=== PATIENT | male | born 1940 | race Caucasian/White ===

== ENCOUNTER 2017-10-26 10:48 | Outpatient (CLI) | payer MEDICARE ==
[2017-10-26 13:51] LABS: Hemoglobin 14.5 g/dL (14.0-18.0); Mean Corpuscular HGB CONC 32.2 g/dL (32.0-36.0); Mean Corpuscular Hemoglobin 30.3 pg (27.0-31.0); Mean Corpuscular Volume 94.2 fL (78.0-98.0); Mean Platelet Volume 6.7 fL (7.4-10.4); Platelet Count 232 thou/uL (130-400); RBC Distribution Width 13.2 % (11.5-14.5); Red Blood Cell (RBC) Count 4.76 mill/uL (4.70-6.10); White Blood Cell (WBC) Count 7.4 thou/uL (4.8-10.8)
[2017-10-26 14:14] LABS: Anion Gap 14 mmol/L (10-20); BUN (Urea Nitrogen) 25 mg/dL (8.4-25.7); Calc. Creatinine Clearance 0 mL/min (70-130); Calcium 9.4 mg/dL (7.8-10.44); Carbon Dioxide 25 mmol/L (23-31); Chloride 105 mmol/L (98-107); Estimated GFR-MDRD 55; Glucose 93 mg/dL (83-110); Potassium 4.8 mmol/L (3.5-5.1); Sodium 139 mmol/L (136-145)
--- NOTE | 2017-10-26 14:48 | RAD ---
CHEST TWO VIEWS: 10/26/17 HISTORY: Not provided. COMPARISON: None. FINDINGS: Two views chest: Right sided transvenous defibrillator with lead position over the right atrium, right ventricle. Ster notomy wires are noted. Normal cardiac silhouette. Pulmonary vessels and hilum are normal. Costophren ic angles are clear. No consolidation or mass. No pneumothorax or osseous abnormalities. IMPRESSION: No acute cardiopulmonary process. POS: [facility]
--- NOTE | 2017-10-30 17:20 | EKG ---
Test Reason : Blood Pressure : / mmHG Vent. Rate : 056 BPM Atrial Rate : 250 BPM P-R Int : 000 ms QRS Dur : 196 ms QT Int : 506 ms P-R-T Axes : 000 -76 096 degrees QTc Int : 488 ms Electronic ventricular pacemaker No previous ECGs available Confirmed by LUPE BOND (2) on 10/30/2017 5:20:12 PM Referred By: MOE Confirmed By:LUPE BOND
== END 2017-10-26 10:49 | disposition home or self-care (01) ==
LOC: LABBT 10:48
PROVIDERS: ATTEND Specialist
DX: Z01.818 Encounter for other preprocedural examination (principal); C91.90 Lymphoid leukemia, unspecified not having achieved remission
CPT/HCPCS: 71046; 80048; 85027; 93005; 93010

== ENCOUNTER 2017-11-01 11:57 | Day surgery (SDC) | payer MEDICARE ==
[2017-10-26 11:23] VITALS: BMI 34.7
[2017-11-01] MEDS ORDERED: Ketorolac Tromethamine 30 MG/ML VIAL ONE (12:45)
[2017-11-01] MEDS ORDERED: CEFAZOLIN/Water 2 GM/20 ML SYRINGE ONE (12:46)
[2017-11-01] MEDS ORDERED: Bupivacaine/Epinephrine 0.25% 30 ML VIAL ONE (14:27)
[2017-11-01] MEDS ORDERED: Lidocaine 1% (PF) 30 ML VIAL ONE (14:27)
[2017-11-01] MEDS ORDERED: Lidocaine 1% PF 5 ML VIAL ONE (15:02)
--- NOTE | 2017-11-01 16:21 | RAD ---
CHEST ONE VIEW: History: 77-year-old male post Mediport placement. FINDINGS: Right ICD. Left Mediport catheter and ejection port has been placed. The tip of which extends into th e superior vena cava. No evidence for pneumothorax. There are post underlying sternotomy. IMPRESSION: Left subclavian catheter and ejection port placed without pneumothorax, pleural effusion, or other ac mary's igloo process. Post underlying sternotomy and right ICD. POS: [facility]
--- NOTE | 2017-11-02 11:02 | OP ---
DATE OF PROCEDURE: 11/01/2017 PREOPERATIVE DIAGNOSIS: Chronic lymphocytic leukemia. POSTOPERATIVE DIAGNOSIS: Chronic lymphocytic leukemia. OPERATION PERFORMED: Placement of left subclavian standard size power compatible MediPort. SURGEON: Burak Arteaga M.D. ANESTHESIA: Total intravenous anesthesia with local using 0.25% Marcaine with epinephrine. INDICATIONS: The patient is a 77-year-old white male. MediPort placement was requested by his oncol ogist for continuing treatment of his CLL. He has a pacemaker placed already on his right chest, the refore plans to place it on his left. DESCRIPTION OF OPERATION: Informed consent was obtained. The patient was taken to the operating shahla m where total intravenous anesthesia was obtained with the patient in supine position. Left periclav icular area was prepped with ChloraPrep and draped in sterile fashion. Local anesthetic was infiltra dandre and a large gauge needle was passed under the clavicle in the subclavian vein. Guidewire was pas sed through the needle and fluoroscopically confirmed to enter the superior vena cava. Additional lo silvia anesthetic was infiltrated and transverse incision was created based on needle insertion site. A subcutaneous pocket was dissected inferiorly. Introducer dilator was passed over the guidewire unde r fluoroscopic guidance. The guidewire and dilator were removed, and the catheter was passed through the introducer. The tip of the catheter was positioned at the atriocaval junction and the catheter was trimmed to the appropriate length and secured to the locking hub of the MediPort. The port was t hen placed in the subcutaneous pocket where it was secured to the pectoral fascia with 2 interrupted sutures of 3-0 Prolene. The incision was then closed in layers with 3-0 and 4-0 Monocryl. Additiona l local anesthetic was infiltrated. The port was cannulated with a New needle and it aspirated blo od freely and was flushed with heparinized saline. Dermabond was placed externally on the skin incis ion. There were no complications. Blood loss was negligible. The patient tolerated the procedure w ell and was taken to recovery room in stable condition. FINDINGS: The port was placed uneventfully in the left subclavian vein. Standard size was utilized and this was a power compatible MediPort. His anatomy was unremarkable. There was essentially no bl ood loss, no complications.
== END 2017-11-01 16:40 | disposition home or self-care (01) ==
LOC: SDC 11:57
PROVIDERS: ATTEND Specialist
PROC: 05H633Z Insertion of Infusion Device into Left Subclavian Vein, Percutaneous Approach (ICD-10-PCS; principal; 2017-11-01)
DX: C91.10 Chronic lymphocytic leukemia of B-cell type not having achieved remission (principal); E11.39 Type 2 diabetes mellitus with other diabetic ophthalmic complication; H42 Glaucoma in diseases classified elsewhere; Z88.8 Allergy status to other drugs, medicaments and biological substances; Z79.899 Other long term (current) drug therapy
CPT/HCPCS: 36561; 71045; 82962; C1788; 36416; J0131; J1642; J1885; J2001

== ENCOUNTER 2017-12-11 23:09 | Inpatient (IN) | payer MEDICARE ==
[~2017-12-11 23:09] MED LIST: ISOVUE-370 76%-LOCM 1 ML ONE
[2017-12-11 23:52] LABS: #Eosinphils 0.2 thou/uL (0.0-0.7); #Lymphocytes 1.9 thou/uL (1.20-3.40); #Monocytes 0.8 thou/uL (0.11-0.59); #Neutrophils 7.8 thou/uL (1.40-6.50); %Basophils 0.4 % (0.0-1.0); %Eosinophils 2.1 % (0.0-10.0); %Lymphocytes 17.3 % (21.0-51.0); %Monocytes 7.2 % (0.0-10.0); %Neutrophils 73.1 % (42.0-75.0); Hemoglobin 12.4 g/dL (14.0-18.0); Mean Corpuscular HGB CONC 32.8 g/dL (32.0-36.0); Mean Corpuscular Hemoglobin 30.8 pg (27.0-31.0); Mean Platelet Volume 6.9 fL (7.4-10.4); Platelet Count 230 thou/uL (130-400); RBC Distribution Width 12.8 % (11.5-14.5); Red Blood Cell (RBC) Count 4.02 mill/uL (4.70-6.10); White Blood Cell (WBC) Count 10.7 thou/uL (4.8-10.8)
--- NOTE | 2017-12-11 23:53 | RAD ---
AP VIEW CHEST: 12/11/2017 HISTORY: Weakness. Bradycardia. Chest pain. COMPARISON: 11/01/2017 FINDINGS: AP view chest demonstrates sternotomy wires seen. A dual-lead intracardiac defibrillator is seen. C ardiomegaly is noted. Mild pulmonary vascular congestion is seen. No evidence of effusions, pneumon ia, or pneumothorax is seen. A left subclavian Mediport catheter is in pace. IMPRESSION: 1. Cardiomegaly. 2. Pulmonary vascular congestion. POS: [facility]
[2017-12-12 00:12] LABS: ALT (SGPT) 10 U/L (8-55); AST (SGOT) 16 U/L (5-34); Albumin 3.8 g/dL (3.4-4.8); Alkaline Phosphatase 58 U/L (40-150); Anion Gap 11 mmol/L (10-20); BUN (Urea Nitrogen) 32 mg/dL (8.4-25.7); Bilirubin, Total 1.6 mg/dL (0.2-1.2); CK (CPK) 186 U/L (30-200); Calc. Creatinine Clearance 0 mL/min (70-130); Calcium 8.7 mg/dL (7.8-10.44); Carbon Dioxide 26 mmol/L (23-31); Chloride 102 mmol/L (98-107); Estimated GFR-MDRD 53; Globulin 2.5 g/dL (2.4-3.5); Glucose 111 mg/dL (83-110); Potassium 4.9 mmol/L (3.5-5.1); Protein, Total 6.3 g/dL (5.8-8.1); Sodium 134 mmol/L (136-145)
[2017-12-12 00:16] LABS: CKMB 1.4 ng/mL (0-6.6)
[2017-12-12 01:15] LABS: Bilirubin Negative (Negative); Blood, Urine Negative (Negative); Clarity CLEAR (Clear); Glucose, Urine (Dipstick) Negative (Negative); Leukocyte Trace (Negative); Nitrite Negative (Negative); Protein, Urine (Dipstick) Negative (Neg-Trace); Specific Gravity, Urine 1.029 (1.002-1.036)
[2017-12-12 01:18] LABS: Bacteria/HPF None Seen HPF (None Seen); Hyaline Casts/LPF 4-6 HYALINE CAST LPF (0-3 Hyaline); Pathc Cast-AUWi Flag 1.16 (0-2.49); Squamous Epithelial 0-3 HPF (0-3); WBC/HPF 0-3 HPF (0-3)
[2017-12-12 01:35] LABS: Yeast-All Forms None Seen HPF (None Seen)
[2017-12-12] MEDS ORDERED: Bupivacaine 0.5% 10 ML VIAL ONE ×2 (01:55→01:57)
[2017-12-12] MEDS ORDERED: Ondansetron PF 4 MG/2 ML Vial IVP PRN (05:31)
[2017-12-12] MEDS ORDERED: Ondansetron ODT 4 MG TAB SL PRN (05:31)
[2017-12-12] MEDS ORDERED: Acetaminophen 325 MG TAB PO PRN (05:31)
[2017-12-12 05:48] VITALS: BMI 34.7
--- NOTE | 2017-12-12 08:08 | CT ---
PRELIMINARY REPORT/[facility]/EMERGENTY AFTER-HOURS PROCEDURE CT Chest Without Intravenous Contrast EXAM DATE/TIME: 12/12/2017 1:29 AM CLINICAL HISTORY: 77 years old, male; Injury or trauma; Fall; Initial encounter; Abrasion; Prior surgery; Patient HX: E r 7; Fall; Rib FX seen on abdomen CT; 77 yo m presents to ed with mental status changes. reports PT was placed on tylenol #3 after a mechanical fall and another unwitnessed fall yesterday. TECHNIQUE: Axial computed tomography images of the chest without intravenous contrast. Coronal and sagittal reformatted images were created and reviewed. COMPARISON: No relevant prior studies available. FINDINGS: Tubes, catheters and devices: Cardiac device present. Lungs: Lungs are clear aside from mild bibasilar scarring/subsegmental atelectasis. Pleural space: No pneumothorax or hemothorax. Heart: Normal. No cardiomegaly. No pericardial effusion. Mediastinum: Esophagus is unremarkable. Aorta: 4.5 cm fusiform aneurysmal dilatation of the ascending aorta. No rupture. No traumatic aortic injury. No mediastinal hematoma, pneumomediastinum, or hemopericardium. Lymph nodes: Unremarkable. No enlarged lymph nodes. Bones/joints: Acute displaced posterolateral right eighth rib fracture. Acute nondisplaced posterolat eral right ninth rib fracture. Soft tissues: Unremarkable. Gallbladder and bile ducts: Prior cholecystectomy. Pancreas: Equivocal mild peripancreatic inflammation raises the possibility of acute pancreatitis. Kidneys and ureters: Right renal cyst. Other findings: No pulmonary contusion. IMPRESSION: 1. Equivocal mild peripancreatic inflammation raises the possibility of acute pancreatitis. 2. Acute displaced posterolateral right eighth rib fracture. Acute nondisplaced posterolateral right ninth rib fracture. Thank you for allowing us to participate in the care of your patient. Dictated and Authenticated by: Malachi Singh MD 12/12/2017 1:46 AM Central Time ([place] & [place]) FINAL REPORT CT CHEST NONCONTRAST CT THORACIC SPINE NONCONTRAST: DATE: 12/12/2017. TIME: Performed on an emergency basis at 0130 hours. HISTORY: Chest injury. Abnormal CT abdomen. FINDINGS: Agree with the preliminary report by Dr. Singh from [facility]. Right posterolateral lower rib fractures are again demonstrated. Minimal soft tissue gas. No evidence of pneumothorax. Lack o f IV contrast limits evaluation of the soft tissues. No bulky mediastinal adenopathy or hematoma. A rterial calcification is apparent. Vertebral body height and alignment of the thoracic spine are int act with degenerative changes apparent. No thoracic spine fracture is evident. POS: [facility]
--- NOTE | 2017-12-12 08:27 | CT ---
PRELIMINARY REPORT/[facility]/EMERGENTY AFTER-HOURS PROCEDURE CT Abdomen and Pelvis With Intravenous Contrast EXAM DATE/TIME: 12/12/2017 12:26 AM CLINICAL HISTORY: 77 years old, male; Pain; Abdominal pain; Localized; Right; Prior surgery; Patient HX: Er 7; Weakness ; Abdominal pain; Abdomen tender, to the right upper quadrant, to the right lower. Surgical history o f cholecystectomy. TECHNIQUE: Axial computed tomography images of the abdomen and pelvis with intravenous contrast. Coronal and sag ittal reformatted images were created and reviewed. COMPARISON: No relevant prior studies available. FINDINGS: Lower thorax: The heart is enlarged. Trace right pleural effusion. Mild right basilar consolidation. Left lower lobe calcified granuloma. Right posterior chest wall soft tissue edema and gas. There is a high density focus adjacent to the 8th rib fracture (series 2 image 12 and series 601 image 133). ABDOMEN: Liver: Unremarkable. No mass. Gallbladder and bile ducts: There has been a cholecystectomy. Pancreas: Mild infiltrative changes surrounding the pancreas most pronounced at the level of the head and uncinate process. Spleen: Unremarkable. No splenomegaly. Adrenals: Unremarkable. No mass. Kidneys and ureters: Bilateral renal hypodensities which demonstrate density higher than that of simp le cysts. Left renal calculi. No hydronephrosis. Stomach and bowel: Moderate stool. No bowel obstruction. The duodenal C-loop appears somewhat thicken ed. Colonic diverticula without adjacent inflammatory change. Appendix: Normal appendix. No findings to suggest acute appendicitis. PELVIS: Bladder: Unremarkable as visualized. Reproductive: Unremarkable as visualized. ABDOMEN and PELVIS: Intraperitoneal space: No free air. No significant fluid collection. Bones/joints: Prior median sternotomy. Multilevel spondylosis. Displaced right posterolateral 8th, mi nimally displaced right posterolateral 9th and nondisplaced right posterolateral 10th rib fractures. 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 There has been a right total hip arthroplasty. Soft tissues: Tiny fat containing umbilical and small bilateral inguinal hernias. Vasculature: Moderate atherosclerotic disease. Fusiform infrarenal abdominal aortic aneurysm measurin g 3.7 x 3.5 cm in greatest diameter. Bilateral common iliac artery aneurysms measuring 2.6 cm on the left and 2.5 cm on the right. 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 Lymph nodes: No enlarged lymph nodes. IMPRESSION: 1. Findings suggestive of acute pancreatitis. Mild peripancreatic inflammation. No discrete drainable fluid collection or pseudocyst. 2. The duodenal C-loop appears somewhat thickened. This may be reactive and/or reflect nonspecific du odenitis potentially in the setting of underlying peptic ulcer disease. 3. Acute right 8th through 10th rib fractures. Adjacent right posterior chest wall contusion. High de nsity focus adjacent to the right 8th rib fracture which may represent a focus of active bleeding. 4. Trace right pleural effusion. Mild right basilar consolidation (atelectasis and/or infiltrate and/ or contusion). 5. Other findings as above. THIS REPORT CONTAINS FINDINGS THAT MAY BE CRITICAL TO PATIENT CARE. The findings were verbally commun icated via telephone conference with YOLANDA PURI at 1:10 AM [employer] on 12/12/2017. The findings were acknowledged and understood. Thank you for allowing us to participate in the care of your patient. Dictated and Authenticated by: Osmel Strong MD 12/12/2017 1:11 AM Central Time ([place] & [place]) FINAL REPORT CT ABDOMEN AND PELVIS WITH IV CONTRAST: DATE: 12/12/2017. TIME: Performed on an emergency basis at 0027 hours. HISTORY: Abdominal pain. FINDINGS: No comparison. Agree with the preliminary report by Dr. Strong from [facility]. Inflammation in the right upper quadrant surrounds the pancreatic head and duodenum. Clinical correlation regardi ng other signs and symptoms of acute noncomplicated pancreatitis is required. Nonobstructing left re nal calculus. Right posterior lower rib fractures are favored to be acute. POS: [facility]
--- NOTE | 2017-12-12 08:28 | CT ---
PRELIMINARY REPORT/[facility]/EMERGENTY AFTER-HOURS PROCEDURE CT Head Without Intravenous Contrast EXAM DATE/TIME: 12/12/2017 12:21 AM CLINICAL HISTORY: 77 years old, male; Signs and symptoms; Altered mental status/memory loss; Confusion or disorientatio n; Patient HX: Ams/confusion; Weakness TECHNIQUE: Axial computed tomography images of the head/brain without intravenous contrast. COMPARISON: No relevant prior studies available. FINDINGS: Brain: There is diffuse cerebral atrophy present. There is bilateral periventricular and subcortical white matter hypodensity most likely related to chronic microvascular angiopathy. Mendoza-white matter d ifferentiation is within normal limits. No hemorrhage. Ventricles: No ventriculomegaly. Bones/joints: No acute fracture. Sinuses: Mild right maxillary and left frontal sinus mucosal thickening. Mastoid air cells: Well aerated. Soft tissues: Unremarkable. Vasculature: There is atherosclerotic disease of the internal carotid and vertebral arteries bilatera llkedar. IMPRESSION: 1. No acute hemorrhage, focal mass or large territory infarction. 2. Other findings as above. Thank you for allowing us to participate in the care of your patient. Dictated and Authenticated by: Osmel Strong MD 12/12/2017 12:34 AM Central Time ([place] & [place]) FINAL REPORT CT HEAD NONCONTRAST: DATE: 12/12/2017. TIME: Performed on an emergency basis at 0022 hours. HISTORY: Altered mental status. Weakness. FINDINGS: Agree with the preliminary report by Dr. Strong from [facility]. Chronic-type findings are not ed, including atherosclerosis. No acute intracranial abnormalities are demonstrated. POS: [facility]
--- NOTE | 2017-12-12 11:08 | HP ---
HISTORY OF PRESENT ILLNESS: The patient is a 77-year-old man who was brought to the emergency depart ment following an apparent near syncopal episode resulting in a fall 2 days previously. According to the patient's , the patient has been complaining of worsening chest wall pain since. He denies any dyspnea. The patient and his both denied any apparent head trauma resulting from this fall. The patient had been placed on Tylenol #3 following the fall and had an untoward reaction from that m arked by a significant mental status change. The patient did have visual hallucinations as a result of the new medication. The patient was apparently diaphoretic a few hours prior to presentation to the emergency department. PAST MEDICAL HISTORY: Pertinent for chronic lymphocytic leukemia, chronic atrial fibrillation. PAST SURGICAL HISTORY: Pertinent for right hip arthroplasty, bilateral knee arthroplasties, pacemake r implantation, right rotator cuff repair, cholecystectomy, thyroidectomy and 4-vessel coronary arter ial bypass graft. SOCIAL HISTORY: He is , lives at home with his . He denies any cigarette smoking, ethano l or illicit drug abuse. FAMILY HISTORY: Noncontributory for this patient's age. REVIEW OF SYSTEMS: A 10-point review of systems essentially unremarkable except for as stated in pas t medical history and chief complaint. PHYSICAL EXAMINATION: GENERAL: This reveals a 77-year-old normally developed man who is otherwise coherent and interactive and appears stated age. The patient is alert and oriented x3, appears to be in no acute distress at the time of my evaluation, although he reports profound weakness. VITAL SIGNS: Currently includes blood pressure 131/72, pulse is 75, respiratory rate is 18, temperat ure is 97.4 degrees Fahrenheit, oxygen saturation is 95% on room air. HEENT: Reveals normocephalic and atraumatic. Pupils are equal, round, reactive to light and accommo dation. Extraocular muscles are intact bilaterally. No sclerae icterus present. Oral mucosa is pin k and moist. No lesions are noted. NECK: Supple. No palpable lymphadenopathy or thyromegaly present. CARDIOVASCULAR: Reveals irregular rate and irregular rhythm. CHEST: Lungs are clear to auscultation bilaterally. Breathing is regular and unlabored. ABDOMEN: Soft, nontender, nondistended. Bowel sounds in all 4 quadrants, appear normoactive. Liver and spleen are nonpalpable below costal margins. NEUROLOGIC: Reveals no focal deficits present. EXTREMITIES: Reveals 2+ radial and pedal pulses bilaterally. No ankle edema is present. PERTINENT LABORATORY DATA: Today includes a CBC with 10,700 white blood cells, hemoglobin and hemato crit 12.4 and 37.7 respectively. Platelet count 230,000. Metabolic profile: Sodium 134, potassium 4.9, chloride is 102, bicarbonate 26, BUN 32, creatinine is 1.32, glucose is 111, AST and ALT normal at 16 and 10 respectively. Serum lipase is normal at 25. I have personally reviewed the radiographic studies including a chest x-ray with cardiomegaly and pul monary congestion. CT scan of the brain is unremarkable for any acute intracranial pathology. CT scan of the chest is u nremarkable for any acute intrathoracic pathology. CT scan of the abdomen and pelvis is remarkable f or multiple rib fractures involving right ribs 8 through 10. IMPRESSION: 1. Status post ground level fall second toe secondary to a near syncopal episode. 2. Multiple rib fractures involving ribs, right 8 through 10. 3. History of chronic cardiomyopathy. 4. Chronic atrial fibrillation, rate controlled. 5. Acute kidney injury. PLAN: 1. We will complete a syncopal workup. We will obtain a transthoracic echocardiography to define th e patient's cardiac function, establish chamber size and rule out any wall motion abnormalities. 2. Initiate physical and occupational therapy once adequate pain control has been achieved. 3. We will continue to monitor the patient's urinary output and creatinine clearance to determine th e stability of the acute kidney injury as the patient was exposed to IV contrast yesterday. The above findings and plan has been discussed with the patient and his at bedside. He may requ ashley inpatient rehabilitation post-discharge.
[2017-12-12] MEDS ORDERED: HumaLOG 300 UNITS/3 ML VIAL SC PRN (16:41)
[2017-12-12] MEDS ORDERED: Ondansetron ODT 4 MG TAB PO PRN (16:41)
[2017-12-12] MEDS ORDERED: Dextrose 5% in Water 1,000 ML IV PRN (16:41)
[2017-12-12] MEDS ORDERED: Dextrose 50% Abboject 50 ML SYRINGE SLOW IVP PRN (16:41)
[2017-12-12] MEDS ORDERED: traMADol HCl 50 MG TAB PO PRN ×2 (16:43)
[2017-12-12] MEDS ORDERED: Nitroglycerin 0.4 MG TAB (25 Tab Bottle) SL PRN (16:45)
[2017-12-12] MEDS: Acetaminophen 500 MG TAB PO SCH ×2 (17:28→23:02)
[2017-12-12] MEDS: Simvastatin 40 MG TAB PO SCH (20:08)
[2017-12-12] MEDS: Meloxicam 15 MG TAB PO SCH (20:08)
[2017-12-12] MEDS: Dabigatran 150 mg Capsule PO SCH (20:08)
[2017-12-12] MEDS: Amitriptyline HCl 25 MG TAB PO SCH (20:08)
[2017-12-12] MEDS: Lorazepam 1 MG TAB PO SCH (20:08)
[2017-12-12] MEDS: Carvedilol 25 MG TAB PO SCH (20:09)
[2017-12-12] MEDS: Sacubitril 24.5 MG/Valsartan 25.5 MG TABLET PO SCH (20:09)
[2017-12-13] MEDS ORDERED: Melatonin 3 MG TAB PO PRN (00:50)
[2017-12-13] MEDS: Acetaminophen 500 MG TAB PO SCH ×4 (05:03→22:16)
[2017-12-13] MEDS: Levothyroxine Sodium 25 MCG TAB PO SCH (05:03)
[2017-12-13] MEDS: Levothyroxine Sodium 112 MCG TAB PO SCH (05:03)
[2017-12-13 06:11] LABS: #Eosinphils 0.2 thou/uL (0.0-0.7); #Lymphocytes 1.9 thou/uL (1.20-3.40); #Monocytes 0.6 thou/uL (0.11-0.59); #Neutrophils 6.9 thou/uL (1.40-6.50); %Basophils 0.3 % (0.0-1.0); %Eosinophils 1.7 % (0.0-10.0); %Lymphocytes 20.1 % (21.0-51.0); %Monocytes 6.3 % (0.0-10.0); %Neutrophils 71.6 % (42.0-75.0); Hemoglobin 11.7 g/dL (14.0-18.0); Mean Corpuscular HGB CONC 32.9 g/dL (32.0-36.0); Mean Corpuscular Hemoglobin 30.8 pg (27.0-31.0); Mean Corpuscular Volume 93.8 fL (78.0-98.0); Mean Platelet Volume 6.9 fL (7.4-10.4); Platelet Count 220 thou/uL (130-400); RBC Distribution Width 12.8 % (11.5-14.5); White Blood Cell (WBC) Count 9.6 thou/uL (4.8-10.8)
[2017-12-13 06:15] LABS: Anion Gap 13 mmol/L (10-20); BUN (Urea Nitrogen) 36 mg/dL (8.4-25.7); Calc. Creatinine Clearance 85 mL/min (70-130); Calcium 8.7 mg/dL (7.8-10.44); Carbon Dioxide 25 mmol/L (23-31); Chloride 103 mmol/L (98-107); Estimated GFR-MDRD 55; Glucose 118 mg/dL (83-110); Magnesium 2.2 mg/dL (1.6-2.6); Phosphorus 3.3 mg/dL (2.3-4.7); Potassium 4.7 mmol/L (3.5-5.1); Sodium 136 mmol/L (136-145)
--- NOTE | 2017-12-13 07:38 | CT ---
CT OF THE BRAIN WITHOUT CONTRAST: Date: 12/13/17 INDICATION: History of fall. COMPARISON: Prior CT of the brain dated 12/12/17. FINDINGS: No acute infarct, hemorrhage, or hydrocephalus is present. There is generalized cerebral and cerebell ar atrophy. There is mild chronic small vessel white matter ischemic change. The skull and extracrani al soft tissues appear within normal limits. IMPRESSION: No acute intracranial abnormality. POS: [facility]
[2017-12-13] MEDS ORDERED: DONEPEZIL HCL PO SCH (09:00)
[2017-12-13] MEDS ORDERED: MEMANTINE HCL PO SCH (09:00)
[2017-12-13] MEDS ORDERED: FLAXSEED OIL PO SCH (09:00)
[2017-12-13] MEDS ORDERED: Vit B12/Folic Acid/B6/Aa No.15 [Glycotrol Capsule] PO SCH (09:00)
[2017-12-13] MEDS: Carvedilol 25 MG TAB PO SCH ×2 (10:17→20:02)
[2017-12-13] MEDS: Dabigatran 150 mg Capsule PO SCH ×2 (10:18→20:02)
[2017-12-13] MEDS: Fish Oil 1,000 MG CAP PO SCH (10:18)
[2017-12-13] MEDS: Lorazepam 1 MG TAB PO SCH ×2 (10:18→20:02)
[2017-12-13] MEDS: Multivitamin W/ Minerals 1 TAB PO SCH (10:18)
[2017-12-13] MEDS: Aspirin 81 mg Enteric Coated Tablet PO SCH (10:18)
[2017-12-13] MEDS: Sacubitril 24.5 MG/Valsartan 25.5 MG TABLET PO SCH ×2 (10:25→20:02)
--- NOTE | 2017-12-13 11:43 | PRG-2 ---
DATE OF SERVICE: 12/13/2017 RESIDENT: Dr. Kerry Anand ATTENDING: Dr. William Shah HISTORY OF PRESENT ILLNESS: This is a 77-year-old male status post fall with multiple right rib fractures 8 through 10. SUBJECTIVE: The patient reports doing well this morning. Overnight, there was a [place] all because the patient pulled out his IV and had wandered into the hallway. Vital signs remained stable during this time. The patient was found sitting on the ground. CT brain after the event showed no acute intracranial process. On exam this morning, the patient reports 0/10 pain. When prompted the patient does report pain 9/10 with coughing. Patient having BMs. OBJECTIVE: VITAL SIGNS: Temperature 97.4, pulse 65, respirations 19, O2 saturation 98% room air, BP 103/65. GENERAL: The patient is alert and oriented x3, no acute distress. HEENT: Normocephalic, atraumatic. Pupils equal, round, reactive to light. Extraocular muscles intact bilaterally. No scleral icterus. Oral mucosa pink and moist. NECK: Supple. Trachea midline. CARDIOVASCULAR: Regular rate and rhythm. No murmurs, rubs or gallops. RESPIRATORY: Bilateral symmetrical chest rise, nonlabored breathing. ABDOMEN: Soft, nontender, nondistended. NEUROLOGICAL: Nonfocal exam. EXTREMITIES: Free range of motion in all extremities. No edema present. LABORATORY DATA: WBCs 9.6, hemoglobin 11.7, hematocrit 35.6, platelets 220. Chemistry: Sodium 136, potassium 4.7, chloride 103, BUN 36, creatinine 1.28. Calcium, phosphorus and magnesium within normal limits. ASSESSMENT: 1. Status post ground level fall secondary to a near syncopal episode. 2. Multiple rib fractures involving ribs 8 through 10. 3. History of chronic cardiomyopathy. 4. Chronic atrial fibrillation, rate controlled. 5. Acute kidney injury. Echocardiogram results from yesterday showed ejection fraction of 35-40%, left atrium moderately dilated, mitral regurg present, tricuspid regurg present, dyskinetic motion of the apical wall noted. PLAN: We will consult Cardiology today. The patient states that he follows up regularly with his messenger copy, Dr. Teran in [place], [place]. I appreciate Cardiology recommendations. We will continue with physical and occupational therapy and pain control. Pain control meds will be monitored closely as patient has adverse reactions to stronger pain medications. We will continue to monitor urinary output and creatinine clearance as the patient was exposed to IV contrast 2 days ago. The patient was seen and examined by Dr. Shah at the bedside this morning. The plan above was discussed with Dr. Shah who was in agreement. SHARON
[2017-12-13] MEDS: Meloxicam 15 MG TAB PO SCH (20:02)
[2017-12-13] MEDS: Simvastatin 40 MG TAB PO SCH (20:02)
[2017-12-13] MEDS: Amitriptyline HCl 25 MG TAB PO SCH (20:02)
--- NOTE | 2017-12-14 03:54 | CON ---
CARDIOLOGY CONSULT DATE OF ADMISSION: 12/12/2017 DATE OF CONSULTATION: 12/13/2017 INDICATION FOR CONSULTATION: A 77-year-old patient with a history of cardiomyopathy and atrial fibrillation, we were asked to see the patient regarding his cardiomyopathy. He has had history of some falls, but have no history of syncope. HISTORY OF PRESENT ILLNESS: This very unfortunate 77-year-old gentleman who has had a history of myocardial infarction in the past back in 2002, he underwent bypass surgery in 2003 with 4-vessel bypass, I believe in [place]. He had pacemaker insertion in 2004. He then had this upgraded to an AICD in 2011. He has had device replaced in 2017. He has had no previous shocks from the ICD. He was diagnosed also with CLL in 1994 and this has been in remission. He presented to the hospital at this time after he has had several falls, the worst one was last , when he was taking out the trash, he got lost his balance with the trash can fell over and broke some ribs after he hit something in the garage. He was brought to the emergency room and has been admitted. Since being here, he has also had another fall and became somewhat confused. He has been given pain medications and most likely was confused on the pain medications also, but his and family tell me he has been diagnosed with dementia about 2 years ago. While he was here, he had an echocardiogram performed which showed ejection fraction of 40%-45%. I suspect this is not a new finding, but we do not have those results or those records and we have requested that we received these records from his mmd unit teacher in [place] Dr. Ram and this will hopefully give some insight is whether or not this is a new finding. It is unlikely that this is new since the patient has a defibrillator. He also appears to be in chronic atrial fibrillation. The device was checked today, it was interrogated today and it shows atrial fibrillation since February of this year. The ventricular rate has been anywhere between the average ventricular rate appears to be in the 80 range except at night, he is in the 60s. I cannot determine whether or not he is pacing very much from the defibrillator, but I suspect he does have a pacing device which is RV pacing. He does have that, but I did not see that he has two leads. He does not have a biventricular device, appears to be a single chamber device. He does have about 11 years apparently left on the generator and this is a [employer] device. He denies any chest pain. His says he has had any chest pain or significant shortness of breath since he had his bypass surgery and otherwise appears to be still somewhat confused, but is stable at this time. PAST MEDICAL HISTORY: Significant for the coronary artery disease, myocardial infarction and bypass surgery. He has had a history of pacemaker placement and then upgrade to an AICD. He has a history of cardiomyopathy. He has had a right hip surgery. He has had right hip, right knee surgery. He has had rib fractures. He has had a right rotator cuff repair. He has had a cholecystectomy. He has had a thyroidectomy. SOCIAL HISTORY: He is . He smoked heavily in the past up to 4 packs a day for about 30 years. He drinks socially. He stopped drinking and smoking before his myocardial infarction, he stopped in 1994 according to the family. 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 FAMILY HISTORY: Noncontributory. REVIEW OF SYSTEMS: According to the family is unremarkable, so was noted in the history of present illness. PHYSICAL EXAMINATION: GENERAL: Reveals an elderly gentleman who appears to be somewhat confused, but overall is very pleasant and is able to answer some questions. VITAL SIGNS: Blood pressure is 103/65, heart rate is 65 at this time and is regular but he seems to be pacing, respiratory rate 20, O2 saturations 98%. He is afebrile. HEENT: Exam shows the head to be normocephalic, atraumatic. I cannot hear any bruits and no obvious JVD. CHEST: Clear to auscultation without any rales, rhonchi or wheezing. CARDIOVASCULAR: Exam reveals a regular rhythm at this time. I did not hear any significant murmurs, heaves, thrills, bruits or rubs. He does have very soft systolic murmur over the aortic area, most likely due to some aortic valve sclerosis. He has well healed surgical incision over the AICD site. ABDOMEN: Shows obesity with positive bowel sounds. EXTREMITIES: Show no clubbing, cyanosis or edema. Pedal pulses are present. NEUROLOGIC: The patient does appear to be confused, but is awake. EKG shows underlying atrial fibrillation with ventricular pacing. LABORATORY DATA: Shows a sodium of 134, potassium is 4.9, creatinine 1.32. Blood sugar was 111, creatinine 1.32, hemoglobin is 11.7 with hematocrit 35.6, WBC of 9.6. IMPRESSION: 1. Elderly gentleman with cardiomyopathy, who has undergone AICD implant. Ejection fraction does not appear to be severely compromise. At this time, we will ask for the most recent echocardiogram from his mmd unit teacher in [place]. We will make some comparison, but I suspect he has had a history of cardiomyopathy in the past. Otherwise, I cannot account for an AICD in this gentleman unless he has had some type of ventricular tachycardia, but the family was not aware of this. It will need to compare. I would need to manage his cardiomyopathy with BRENDA inhibitors and beta blockers as well as diuretics as needed. 2. History of atrial fibrillation. This appears to be chronic, uncertain as to when this was started, but appears to be chronic and recently his mmd unit teacher had placed him on digoxin and I suspect this was for better rate control. 3. History of some dementia, this will be dealt with by the primary care service. 4. History of chronic lymphocytic leukemia, which appears to be in remission at this time. 5. History of hypothyroidism. He remains on medications. 6. Occasional falls with actually he only fell once according to the family, although he has fallen a couple times, but this is an accidental fall. He is not passing out and falling. He states sometimes his legs give out and get weak and he will fall, but mainly these are either falling over some type of equipment and losing his balance, but there has been no history of syncope according to the family. He does have fractured ribs, they will simply need to heal on their own. As far as his cardiac status is concerned, we will try to obtain his most recent stress test as well as most recent echocardiogram for comparison. At this time, I would continue his medications as noted with the beta blockers and diuretics as needed and we will need to determine whether or not the patient needs to be placed on BRENDA inhibitors or ARBs. His renal function shows a creatinine of 1.32 and decreased down to 1.28 since he has been admitted to the hospital. Once we obtain the records from his primary mmd unit teacher we can make better decisions about further medical management of the patient. At this time , overall he appears to be stable. The AICD was interrogated. There have been no discharges from the device. It appears to be functioning normally. He has a single ventricular lead. He has had previous leads placed in the atrium for the pacemaker, but these have been capped off and appears that he simply has a single chamber device, the atrial lead most likely is not functional. He appears to be in the VVIR mode for now from the interrogation of the AICD. [facility]
[2017-12-14] MEDS: Acetaminophen 500 MG TAB PO SCH ×4 (05:19→23:51)
[2017-12-14] MEDS: Levothyroxine Sodium 25 MCG TAB PO SCH (05:19)
[2017-12-14] MEDS: Levothyroxine Sodium 112 MCG TAB PO SCH (05:19)
[2017-12-14 08:10] LABS: #Eosinphils 0.3 thou/uL (0.0-0.7); #Lymphocytes 2.1 thou/uL (1.20-3.40); #Monocytes 0.6 thou/uL (0.11-0.59); #Neutrophils 6.3 thou/uL (1.40-6.50); %Basophils 0.4 % (0.0-1.0); %Eosinophils 2.8 % (0.0-10.0); %Lymphocytes 22.3 % (21.0-51.0); %Monocytes 6.7 % (0.0-10.0); %Neutrophils 67.8 % (42.0-75.0); Hemoglobin 11.1 g/dL (14.0-18.0); Mean Corpuscular HGB CONC 33.2 g/dL (32.0-36.0); Mean Corpuscular Volume 93.3 fL (78.0-98.0); Mean Platelet Volume 7.4 fL (7.4-10.4); Platelet Count 274 thou/uL (130-400); RBC Distribution Width 12.7 % (11.5-14.5); Red Blood Cell (RBC) Count 3.58 mill/uL (4.70-6.10); White Blood Cell (WBC) Count 9.2 thou/uL (4.8-10.8)
[2017-12-14] MEDS ORDERED: HOPS PO SCH (09:00)
[2017-12-14] MEDS ORDERED: VIT D3 VIT K PO SCH (09:00)
[2017-12-14] MEDS ORDERED: BERBERINE PO SCH (09:00)
[2017-12-14] MEDS: Aspirin 81 mg Enteric Coated Tablet PO SCH (09:07)
[2017-12-14] MEDS: Lorazepam 1 MG TAB PO SCH ×2 (09:07→21:29)
[2017-12-14] MEDS: Fish Oil 1,000 MG CAP PO SCH (09:07)
[2017-12-14] MEDS: Carvedilol 25 MG TAB PO SCH ×2 (09:08→21:29)
[2017-12-14] MEDS: Dabigatran 150 mg Capsule PO SCH (09:08)
[2017-12-14] MEDS: Multivitamin W/ Minerals 1 TAB PO SCH (09:08)
[2017-12-14] MEDS: Sacubitril 24.5 MG/Valsartan 25.5 MG TABLET PO SCH ×2 (09:17→21:32)
[2017-12-14 13:53] LABS: #Eosinphils 0.2 thou/uL (0.0-0.7); #Lymphocytes 1.7 thou/uL (1.20-3.40); #Monocytes 0.6 thou/uL (0.11-0.59); #Neutrophils 4.9 thou/uL (1.40-6.50); %Basophils 0.4 % (0.0-1.0); %Eosinophils 2.7 % (0.0-10.0); %Lymphocytes 23.3 % (21.0-51.0); %Monocytes 7.6 % (0.0-10.0); Hemoglobin 10.1 g/dL (14.0-18.0); Mean Corpuscular HGB CONC 33.3 g/dL (32.0-36.0); Mean Corpuscular Hemoglobin 31.2 pg (27.0-31.0); Mean Corpuscular Volume 93.6 fL (78.0-98.0); Platelet Count 239 thou/uL (130-400); RBC Distribution Width 12.6 % (11.5-14.5); Red Blood Cell (RBC) Count 3.23 mill/uL (4.70-6.10); White Blood Cell (WBC) Count 7.4 thou/uL (4.8-10.8)
[2017-12-14 14:04] LABS: INR-International Normal Ratio 1.9; Prothrombin Time 21.8 SEC (12.0-14.7)
[2017-12-14 14:05] LABS: PTT 70.4 SEC (22.9-36.1)
[2017-12-14] MEDS ORDERED: diphenhydrAMINE 50 MG CAP PO SCH (21:00)
[2017-12-14] MEDS: Amitriptyline HCl 25 MG TAB PO SCH (21:29)
[2017-12-14] MEDS: Meloxicam 15 MG TAB PO SCH (21:29)
[2017-12-14] MEDS: Simvastatin 40 MG TAB PO SCH (21:30)
--- NOTE | 2017-12-14 22:18 | CON ---
DATE OF CONSULTATION: 12/14/2017 REASON FOR CONSULTATION: Hematochezia. HISTORY: Mr. Rojo is a 77-year-old male who was admitted to the hospital 2 days ago after sustaining a fall at home, 5 days ago. Patient sustaining a displaced eighth rib fracture on the right as a result and a nondisplaced ninth rib fracture. Patient also has history of dementia over the last 2 years in addition to CLL that has been in remission. He also has coronary artery disease and defibrillator placement. Reportedly, patient had 2 episodes of bloody stool this morning. When he had 2 episodes of bloody stool this morning. There is no indication of any abdominal pain. There is no nausea or vomiting. Further history is obtained from his . Patient has had routine colonoscopy by forensic dna analyst in [facility]. The last one was 4 years ago and was reportedly normal and he is due to have surveillance colonoscopy next year. There is no history of colon polyps. Up until this admission, he had been eating well without any nausea, vomiting, or any indication of abdominal pain. His bowel function had been fairly regular. He has not had any previous GI bleeding episode. Currently, he is comfortable without any GI complaint. PAST MEDICAL HISTORY: 1. Coronary artery disease, status post bypass surgery. 2. AICD placement. 3. Cardiomyopathy. 4. Right hip surgery. 5. Dementia. 6. Status post cholecystectomy. 7. Thyroidectomy. SOCIAL HISTORY: Patient is , lives with his , former smoker, infrequent alcohol consumption. FAMILY HISTORY: Negative for any known GI problem, liver disease, or GI malignancy. HOME MEDICATIONS: Include digoxin, aspirin, amitriptyline, Pradaxa, meloxicam, Synthroid, memantine/donepezil, simvastatin, vitamin supplement, and Nitrostat p.r.n. REVIEW OF SYSTEMS: Not reliably obtained from patient because of his mental status. A 10-point review of systems was otherwise unremarkable from his . PHYSICAL EXAMINATION: VITAL SIGNS: Temperature is 97.3, blood pressure 93/58, pulse of 82. GENERAL: He is alert, comfortable in no distress. HEENT: Shows anicteric sclerae. Oropharynx clear. NECK: Supple. CARDIOVASCULAR: Shows normal S1, S2. Regular rate and rhythm. CHEST: Shows breath sounds. ABDOMEN: Mildly protuberant, but soft. There is no tenderness. There is no distention. He has active bowel sounds. No bruit. EXTREMITIES: Shows no edema. RECTAL: Shows liquid-dark maroonish bloody stool. There is no palpable mass. There is no visible external hemorrhoids. LABORATORY DATA: WBC 7.4, hemoglobin 10.1 (12.4 on admission), platelet count of 230. INR of 1.9, PTT of 70.4. Electrolytes within normal range. Bilirubin is 1.6, AST 16, ALT of 10, alkaline phosphatase 58, lipase of 25. Abdominal chest CT showed displaced eighth rib fracture and nondisplaced ninth rib fracture on the right. Abdominal CT showed peripancreatic inflammatory changes without any abnormal fluid collection with evidence of duodenitis. ASSESSMENT: 1. Hematochezia/lower gastrointestinal bleed, painless. Clinical presentation and type of stool output is suggestive of diverticular bleed especially without any associated abdominal pain. Less likely is ischemic colitis. Patient has had routine surveillance colonoscopy which makes an aggressive or malignant process unlikely. A brisk upper gastrointestinal bleeding also appears to be unlikely at the present time. 2. Status post recent fall with right rib fractures. 3. Dementia. 4. Cardiomyopathy with coronary artery disease. 5. History of chronic lymphocytic leukemia in remission. 6. Finding of peripancreatic inflammatory changes that is relatively mild on CT. However, his lipase is normal in his exam, is benign and with absence of abdominal pain makes pancreatitis very unlikely. 7. Elevation of PT and PTT. Underlying coagulopathy disorder is unknown. RECOMMENDATIONS: 1. Continue observation at this point, no need for endoscopic intervention unless patient has evidence of ongoing bleeding. 2. Agree with Dr. Shah's order for FFP. 3. We will hold off on further Lovenox and Pradaxa at this point, can continue with aspirin 81 mg daily. 4. We will follow closely. [facility]
--- NOTE | 2017-12-14 22:26 | PRG ---
DATE OF SERVICE: 12/14/2017 RESIDENT: Kerry Anand M.D. ATTENDING: Dr. Shah. SUBJECTIVE: This is a 77-year-old male, status post fall with multiple right rib fractures, 8 through 10. Overnight, nurse reported bowel movement that was bloody. Patient asymptomatic with no abdominal pain at the time. She notes, the patient continues to be disoriented throughout the night and requires a sitter. On exam this morning, the patient reports 0/10 pain. OBJECTIVE: VITAL SIGNS: Temperature 97.6, pulse 82, respirations 18, O2 saturation 95% on room air. GENERAL: The patient is alert and oriented x3, in no acute distress, sitting in the chair at the bedside. HEENT: Normocephalic, atraumatic. Pupils are equal, round, and reactive to light. Extraocular muscles intact bilaterally. No scleral icterus. NECK: Supple. Trachea midline. CARDIOVASCULAR: Regular rate and rhythm. No murmurs, rubs or gallops. RESPIRATORY: Bilateral symmetrical chest rise, nonlabored breathing. ABDOMEN: Soft, nontender, nondistended. Normoactive bowel sounds. NEUROLOGICAL: Nonfocal exam. EXTREMITIES: Free range of motion in all extremities. No edema present bilaterally. LABORATORY DATA: WBC 7.4, hemoglobin 10.1, hematocrit 30.3, platelets 239. PT 21.8, INR 1.9, aPTT 70.4. ASSESSMENT: 1. Status post ground level fall secondary to a near syncopal episode. 2. Multiple rib fractures involving ribs 8 through 10. 3. History of chronic cardiomyopathy. 4. Hematochezia 5. Chronic atrial fibrillation, rate controlled. 6. Acute kidney injury, resolving. PLAN: Cardiology consulted yesterday and requesting most recent echocardiogram and stress records from rubber turner in [place], [place]. At that point, we will be able to compare. BRENDA inhibitors, beta blockers and diuretics may be needed to be added depending on the comparison. I appreciate Cardiology recommendations and they will continue to follow. Due to patient's disorientation and agitation overnight, we will try Seroquel and follow up with the patient's symptoms. We will continue to monitor vital signs and urinary output and creatinine clearance. Bloody stool was noted in the toilet today upon exam. Gastroenterology consulted and state hematochezia likely due to diverticular bleed. GI will continue to follow and we appreciate their recommendations. Patient will be given FFP and blood products if necessary. We will continue to monitor hemoglobin. The patient was seen and examined by Dr. Shah at the bedside this morning during rounds. The plan was discussed with the patient and Dr. Shah who is in agreement. Case management continues to work on placement for the patient who will hopefully be going to [facility] in [place], [place]. SHARON
[2017-12-15 02:57] LABS: INR-International Normal Ratio 1.5; PTT 58.1 SEC (22.9-36.1); Prothrombin Time 18.1 SEC (12.0-14.7)
[2017-12-15] MEDS: Levothyroxine Sodium 112 MCG TAB PO SCH (05:42)
[2017-12-15] MEDS: Acetaminophen 500 MG TAB PO SCH ×3 (05:42→15:50)
[2017-12-15] MEDS: Levothyroxine Sodium 25 MCG TAB PO SCH (05:42)
[2017-12-15 05:56] LABS: #Eosinphils 0.3 thou/uL (0.0-0.7); #Lymphocytes 1.6 thou/uL (1.20-3.40); #Monocytes 0.5 thou/uL (0.11-0.59); #Neutrophils 3.1 thou/uL (1.40-6.50); %Basophils 0.9 % (0.0-1.0); %Eosinophils 5.1 % (0.0-10.0); %Lymphocytes 29.2 % (21.0-51.0); %Monocytes 8.2 % (0.0-10.0); %Neutrophils 56.5 % (42.0-75.0); Mean Corpuscular HGB CONC 32.8 g/dL (32.0-36.0); Mean Corpuscular Hemoglobin 30.6 pg (27.0-31.0); Mean Corpuscular Volume 93.4 fL (78.0-98.0); Mean Platelet Volume 6.9 fL (7.4-10.4); Platelet Count 213 thou/uL (130-400); RBC Distribution Width 12.6 % (11.5-14.5); Red Blood Cell (RBC) Count 2.95 mill/uL (4.70-6.10); White Blood Cell (WBC) Count 5.4 thou/uL (4.8-10.8)
[2017-12-15 06:04] LABS: INR-International Normal Ratio 1.4; Prothrombin Time 17.6 SEC (12.0-14.7)
[2017-12-15 06:05] LABS: PTT 54.7 SEC (22.9-36.1)
[2017-12-15] MEDS: Lorazepam 1 MG TAB PO SCH (09:11)
[2017-12-15] MEDS: Sacubitril 24.5 MG/Valsartan 25.5 MG TABLET PO SCH (09:11)
[2017-12-15] MEDS: Carvedilol 25 MG TAB PO SCH (09:11)
[2017-12-15] MEDS: Multivitamin W/ Minerals 1 TAB PO SCH (09:11)
[2017-12-15] MEDS: Fish Oil 1,000 MG CAP PO SCH (09:11)
[2017-12-15] MEDS ORDERED: OCTAGAM 10% 20 GM, OCTAGAM 10% 10 GM in Premix Bag 1 BAG IVPB SCH (09:30)
[2017-12-15] MEDS ORDERED: diphenhydrAMINE 25 MG CAP PO PRN (09:32)
[2017-12-15] MEDS ORDERED: OCTAGAM IVPB SCH (09:45)
--- NOTE | 2017-12-15 12:45 | CON ---
DATE OF CONSULTATION: 12/15/2017 REASON FOR CONSULTATION: CLL. 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 The patient has had worsening chest pain since the fall. Patient was brought in by his and marbin taylor had started Tylenol #3 after the fall and had significant mental status change and delirium. Th e patient states his pain is still present but has slightly improved since admission to the hospital. The patient had a CT of the chest that showed an acute displaced posterolateral right 8th rib fract ure and acute nondisplaced posterolateral right 9th rib fracture. Also during admission, the patient was noted to have 2 bowel movements with large amount of blood and has been evaluated by Dr. Rylan cordero. It is believed the patient had a diverticular bleed; however, patient has had no more bleeding episodes since yesterday and hemoglobin is currently 9.0 that was 12.4 on admission. Patient's vital signs have been stable and there is no plan for inpatient endoscopy at this time. The patient was d ue for IVIG as an outpatient today. REVIEW OF SYSTEMS: Ten-point review of systems negative except as per HPI. PAST MEDICAL HISTORY: CLL and Afib. PAST SURGICAL HISTORY: Right hip arthroplasty, bilateral knee arthroplasties, pacemaker implantation , right rotator cuff repair, cholecystectomy, thyroidectomy, and CABG. SOCIAL HISTORY: , lives at home with his . No tobacco, alcohol, or illicit drugs. FAMILY HISTORY: Noncontributory. REVIEW OF SYSTEMS: As stated. PHYSICAL EXAMINATION: VITAL SIGNS: Temperature 97.3, pulse 60, respirations 16, satting 97% on room air, blood pressure 10 5/67. GENERAL APPEARANCE: The patient is sitting in a chair, eating, in no acute distress. HEENT: Normocephalic, atraumatic. NECK: Supple, no lymphadenopathy. CARDIOVASCULAR: Regular rate and rhythm, otherwise no murmurs, rubs, or gallops. LUNGS: Nonlabored. Clear to auscultation. ABDOMEN: Soft, nondistended, nontender. NEUROLOGIC: No focal deficits present. EXTREMITIES: No edema. LABORATORY DATA: White blood cells 5.4; hemoglobin 9.0; platelets 213; PTT 70.4, currently 54.7. IMAGING DATA: Chest x-ray dated December 11, 2017, shows cardiomegaly and vascular congestion. CT ch est dated December 12, 2017, shows an acute displaced eighth rib fracture and a nondisplaced ninth rib fracture. ASSESSMENT AND PLAN: A 77-year-old male with chronic lymphocytic leukemia and hypogammaglo bulinemia on IVIG, presenting to the hospital after a fall with 2 acute rib fractures and 2 episodes of bright red blood per rectum. The patient's rib fractures are being treated conservatively with arteaga pportive measures and the patient has had no further episodes of gastrointestinal bleeding. He has b een evaluated by Dr. Haskins and thought to have diverticular bleed and vitals and hemoglobin are stable and thus, no inpatient endoscopy is currently planned. Patient was due for IVIG as an outpatient to day and we will give this to him in the hospital prior to discharge. The patient is planned to go to a care home at this time and upon discharge, can follow up with Dr. Duran as an outpatient for ongoing IVIG treatment. Thank you for this consult.
--- NOTE | 2017-12-15 13:59 | DIS-2 ---
DATE OF ADMISSION: 12/11/2017 DATE OF DISCHARGE: 12/15/2017 RESIDENT: Kerry Anand M.D. DISCHARGE ATTENDING: Dr. William Shah CONSULTATIONS: Case management, Cardiology, Gastroenterology, Oncology, PT/OT. PROCEDURES: None. PRIMARY DIAGNOSIS: Multiple rib fractures, right ribs 8 through 10. SECONDARY DIAGNOSES: Chronic cardiomyopathy, chronic atrial fibrillation, rate controlled, acute kidney injury, dementia, hematochezia, chronic lymphocytic leukemia. DISCHARGE MEDICATIONS: 1. Tylenol extra strength 1000 mg oral every 6 hours. 2. Melatonin 3 mg oral at bedtime as needed. 3. Simvastatin 80 mg oral at bedtime. 4. Ultram 50 mg oral every 6 hours as needed. 5. Seroquel 25mg oral twice daily 6. Aspirin 81 mg oral daily 7. Amitriptyline 1 tab oral at bedtime. 8. Vitamin B12/folic acid/B6 1 cap oral every morning. 9. Carvedilol 1 tab oral twice daily. 10. Vitamin D3-vitamin K 2000 units oral Tuesday, Tuesday, and Tuesday. 11. Maurice 26 mg oral twice daily. 12. [place] 3 fatty acid 1 cap oral every morning. 13. Flaxseed oil 1 cap oral every morning. 14. Insulin 35 units subcu every morning. 15. Levothyroxine 1 tab oral every morning. 16. Meloxicam 1 tab oral at bedtime. 17. Multivitamin, Ther and Minerals 1 tab oral every morning 18. Memantine/Donepezil 1 cap oral every morning 19. Nitrostat 1 tab oral as needed 20. Forteo 20 mcg subq daily 21. Digoxin 250 mcg oral daily DISCONTINUED MEDICATIONS: 1. Lorazepam. 2. Pradaxa. HISTORY OF PRESENT ILLNESS/HOSPITAL COURSE: This is a 77-year-old male brought to the ER following an apparent near syncopal episode resulting in a fall. The patient was placed on Tylenol #3 following the fall and had mental status changes. Per the , the patient is sensitive to medication and gets disoriented during hospital stays. The patient found to have multiple right rib fractures. Rib fracture protocol initiated. Special care taken for pain control as the patient has adverse reaction to stronger pain medications. The patient was disoriented and a Code Rosendo was called on 12/13/2017 due to the patient getting out of bed, pulling his IV, and wandering in the [place]. The patient was found sitting down in the [place]. It is not known if the patient fell , so a head CT was ordered that was negative for any intracranial process. Due to the patient's disorientation he was started on quetiapine. The patient had an echo done during this stay that had ejection fraction of 35-40%, left atrium moderately dilated, mitral and tricuspid regurg and dyskinetic motion of the apical wall. He has a history of chronic cardiomyopathy. Cardiology consulted. Dr. Solorzano is requesting records to compare current echo previous one. The patient routinely follows up with his oil mixer in [place], [place] and will have close followup. During his stay, the patient had a few episodes of bloody bowel movements that were painless. GI consulted and the patient thought to have bloody bowel movements secondary to diverticular disease. Recommended to hold Lovenox and Pradaxa and continue with aspirin. Pradaxa can be resumed in 1 week if there is no further bloody BMs. The patient given 2 units of FFP due to elevated PT and PTT. The patient has a history of CLL. Oncology consulted and the patient started on IVIG as the patient was due for this in the outpatient setting today. Physical and occupational therapy as well as pain control achieved during his stay. The patient had good urinary output. On day of discharge, the patient had 0/10 pain and was alert and oriented x3. Per patient's , he was acting much more like his normal mental status baseline. Patient will be going to a SNF in [place], [place]. On the day of discharge, the patient was seen and examined by Dr. Shah at the bedside. The plan was discussed with the patient and family who are all in agreement. DISPOSITION: Stable. DISCHARGE INSTRUCTIONS: 1. Location: [facility] in [place], [place]. 2. Diet: Consistent carbohydrate, heart healthy. 3. Activity: Ad tika with fall precautions. 4. Followup: Follow up with Dr. Shah in 2 weeks, with PCP in 2 weeks and with oil mixer and oncologist as scheduled. [facility]
[2017-12-15 15:38] VITALS: BP 122/71; TEMP 98
--- NOTE | 2017-12-15 15:58 | PRG ---
DATE OF SERVICE: 12/15/2017 SUBJECTIVE: The patient feels fine without any complaint. He is eating well. There is no nausea, v omiting or abdominal pain. More importantly, he has not had any bloody stool or rectal bleeding sinc e yesterday afternoon. PHYSICAL EXAMINATION: VITAL SIGNS: Temperature is 97.3, blood pressure 105/67, pulse of 60. GENERAL: He is alert, in no distress. HEENT: Shows anicteric sclerae. Oropharynx clear. NECK: Supple. CARDIOVASCULAR: Normal S1, S2. Regular rate and rhythm. CHEST: Shows normal breath sounds. ABDOMEN: Protuberant, but soft. No tenderness or distension. Active bowel sounds. EXTREMITIES: Shows no edema. LABORATORY DATA: WBC is 5.4, hemoglobin 9.0, hematocrit 27.5, platelet count of 213,000. INR is 1.4 , PTT is 54.7 seconds after 2 units of FFP. ASSESSMENT: 1. Painless hematochezia, likely diverticular bleed. Clinically resolved without any further bleedi ng seen in the last 20 hours. He does have a drop in his hemoglobin down now to 9 g/dL. 2. Coronary artery disease with cardiomyopathy, status post AICD placement. 3. Dementia. 4. Status post fall with rib fracture. RECOMMENDATIONS: 1. Clinically doing well from GI standpoint without further bleeding. 2. No new recommendation. The patient is stable to be transferred to SNF in [place] later today. 3. The patient can resume Pradaxa in 1 week if there is no recurrent bleeding.
== END 2017-12-15 19:05 | disposition home or self-care (01) | DRG 183 ==
LOC: ERS 23:09 → SJJU 12-12 04:05
PROVIDERS: ADMIT Surgery; ATTEND Surgery
PROC: 30233N1 Transfusion of Nonautologous Red Blood Cells into Peripheral Vein, Percutaneous Approach (ICD-10-PCS; principal; 2017-12-14)
DX: S22.41XA Multiple fractures of ribs, right side, initial encounter for closed fracture (principal); K57.91 Diverticulosis of intestine, part unspecified, without perforation or abscess with bleeding; N17.9 Acute kidney failure, unspecified; I42.9 Cardiomyopathy, unspecified; C91.11 Chronic lymphocytic leukemia of B-cell type in remission; I48.2 Chronic atrial fibrillation; Z95.0 Presence of cardiac pacemaker; Z90.49 Acquired absence of other specified parts of digestive tract; Z95.1 Presence of aortocoronary bypass graft; Z91.81 History of falling; I25.10 Atherosclerotic heart disease of native coronary artery without angina pectoris; F03.90 Unspecified dementia, unspecified severity, without behavioral disturbance, psychotic disturbance, mood disturbance, and anxiety; Z87.891 Personal history of nicotine dependence; Z79.82 Long term (current) use of aspirin; I25.2 Old myocardial infarction
CPT/HCPCS: 36415; 36416; 36430; 51701; 70450; 71045; 71250; 74177; 80048; 80053; 81003; 81015; 82553; 83690; 83735; 84100; 84484; 85025; 85610; 85730; 86850; 86900; 86901; 93005; 93306; 96360; 96361; G8978-GP-CL; G8979-GP-CJ; G8987-GO-CJ; G8988-GO-CI; J1568; J1642; J3490; P9059

== ENCOUNTER 2017-12-26 19:32 | Inpatient (IN) | payer MEDICARE ==
[2017-12-26] MEDS ORDERED: Ondansetron ODT 4 MG TAB PO PRN (20:33)
[2017-12-26] MEDS ORDERED: hydrALAZINE 20 MG/ML VIAL SLOW IVP PRN (20:33)
[2017-12-26] MEDS ORDERED: Dextrose 5% in Water 1,000 ML IV PRN (20:33)
[2017-12-26] MEDS ORDERED: Dextrose 50% Abboject 50 ML SYRINGE SLOW IVP PRN (20:33)
[2017-12-26] MEDS ORDERED: Ibuprofen 600 MG TAB PO PRN (20:36)
[2017-12-26] MEDS ORDERED: Acetaminophen 500 MG TAB PO PRN (20:36)
[2017-12-26] MEDS ORDERED: traMADol HCl 50 MG TAB PO PRN ×2 (20:36)
[2017-12-26] MEDS ORDERED: Melatonin 3 MG TAB PO PRN (20:37)
[2017-12-26] MEDS ORDERED: Nitroglycerin 0.4 MG TAB (25 Tab Bottle) SL PRN (20:37)
--- NOTE | 2017-12-26 20:44 | CT ---
CT CHEST WITHOUT CONTRAST: Technique: Multiple contiguous axial images were obtained through the chest with IV enhancement. Indications: Shortness of breath. Right lung base opacification noted on chest film. Infiltrate versu s mass versus pneumothorax. FINDINGS: Large right pleural effusion. There is associated right lung atelectasis. Left lung is clear. Mediast inum is unremarkable. IMPRESSION: Large right pleural effusion with associated right lung atelectasis. POS: H
[2017-12-26] MEDS ORDERED: Meloxicam 15 MG TAB PO SCH (21:00)
--- NOTE | 2017-12-26 21:10 | HP ---
HISTORY OF PRESENT ILLNESS: A 77-year-old male patient initially admitted by Dr. Shah on 12/12/2017 for ground level fall with multiple rib fractures 8 through 10 on the right. He has a history of ca rdiomyopathy, CLL, atrial fibrillation on Pradaxa. Patient apparently underwent a syncopal workup, e chocardiography and then transferred to rehab where his Pradaxa was restarted. The patient went home , he became short of breath, reported to the emergency room outside facility. Chest x-ray revealed c hanges suggestive of possible pneumonia. He was transferred to [facility] where Dr. Nagy evaluated him with a CAT scan of the chest revealing a right hemothorax. The patient is on oxygen a nd is felt comfortable since he is on the Pradaxa and his hemoglobin has not changed since 12/15/2017 when it was 9 and 12/14/2017, it was 10, today is 8.8. We will plan to hold his Pradaxa and plan tu be thoracostomy in the next 24-48 hours. ALLERGIES: HYDROCODONE, MORPHINE. TOBACCO: None. ALCOHOL: None. SOCIAL HISTORY: Patient is , lives with his . PAST SURGICAL HISTORY: Right hip arthroplasty, bilateral knee arthroplasties, pacemaker of right sub clavian vein, right rotator cuff, cholecystectomy, thyroidectomy, coronary artery bypass grafting aft er myocardial infarction several years ago. PAST MEDICAL HISTORY: CLL, coronary artery disease, chronic atrial fibrillation on anticoagulation w ith Pradaxa. Echocardiogram on 12/12/2017, 35%-40% ejection fraction, defibrillator present, dyskine tic motion of apical wall LV. MEDICATIONS AT HOME: Tramadol, vitamin D3, B12, Forteo 20 mcg subcu daily, Zocor 80 mg at bedtime, S eroquel 25 b.i.d., nitroglycerin p.r.n., multivitamins daily, memantine, donepezil daily, Meloxicam a t bedtime, melatonin at bedtime, levothyroxine daily, insulin 70/30 5 units subcutaneously a.m., digo elena 250 mcg a day, carvedilol b.i.d., aspirin 81 mg a day, amitriptyline at bedtime. PHYSICAL EXAMINATION: VITAL SIGNS: 120/90, respiratory rate 18. HEENT: Unremarkable. LUNGS: Diminished. CARDIAC: Regular rate and rhythm. ABDOMEN: Soft, nontender. Sternotomy scar per above cardiac history. Defibrillator of right chest. MediPort left subclavian vein IV access. ASSESSMENT AND PLAN: 1. Hemothorax right. Plan, oxygen observed. Plan tube thoracostomy in next 24-48 hours after Juany xa is discontinued. 2. Atrial fibrillation. 3. Cardiomyopathy. 4. Defibrillator. 5. Right rib fractures, chronic. 6. Dementia.
[2017-12-26] MEDS ORDERED: Ketorolac Tromethamine 30 MG/ML VIAL ONE (22:24)
[2017-12-26] MEDS: Sacubitril 24.5 MG/Valsartan 25.5 MG TABLET PO SCH (23:39)
[2017-12-26] MEDS: Carvedilol 25 MG TAB PO SCH (23:40)
[2017-12-26] MEDS: Amitriptyline HCl 25 MG TAB PO SCH (23:40)
[2017-12-26] MEDS: Famotidine 20 MG TAB PO SCH (23:40)
[2017-12-26] MEDS: Simvastatin 40 MG TAB PO SCH (23:40)
[2017-12-27 00:55] VITALS: BMI 32.6
[2017-12-27] MEDS: Levothyroxine Sodium 25 MCG TAB PO SCH (05:27)
[2017-12-27] MEDS: Levothyroxine Sodium 112 MCG TAB PO SCH (05:27)
[2017-12-27 05:33] LABS: #Lymphocytes 1.9 thou/uL (1.20-3.40); #Monocytes 1.1 thou/uL (0.11-0.59); #Neutrophils 9.3 thou/uL (1.40-6.50); %Basophils 0.3 % (0.0-1.0); %Eosinophils 0.3 % (0.0-10.0); %Lymphocytes 14.9 % (21.0-51.0); %Monocytes 9.2 % (0.0-10.0); %Neutrophils 75.4 % (42.0-75.0); Hemoglobin 8.1 g/dL (14.0-18.0); Mean Corpuscular HGB CONC 30.8 g/dL (32.0-36.0); Mean Corpuscular Hemoglobin 29.4 pg (27.0-31.0); Mean Corpuscular Volume 95.6 fL (78.0-98.0); Mean Platelet Volume 6.7 fL (7.4-10.4); Platelet Count 461 thou/uL (130-400); RBC Distribution Width 14.8 % (11.5-14.5); Red Blood Cell (RBC) Count 2.75 mill/uL (4.70-6.10); White Blood Cell (WBC) Count 12.4 thou/uL (4.8-10.8)
[2017-12-27 05:46] LABS: ALT (SGPT) 14 U/L (8-55); AST (SGOT) 16 U/L (5-34); Albumin 3.3 g/dL (3.4-4.8); Alkaline Phosphatase 64 U/L (40-150); Anion Gap 15 mmol/L (10-20); BUN (Urea Nitrogen) 35 mg/dL (8.4-25.7); Bilirubin, Total 1.3 mg/dL (0.2-1.2); Calc. Creatinine Clearance 49 mL/min (70-130); Calcium 8.7 mg/dL (7.8-10.44); Carbon Dioxide 23 mmol/L (23-31); Chloride 105 mmol/L (98-107); Estimated GFR-MDRD 30; Globulin 2.8 g/dL (2.4-3.5); Glucose 131 mg/dL (83-110); Potassium 5.1 mmol/L (3.5-5.1); Protein, Total 6.1 g/dL (5.8-8.1); Sodium 138 mmol/L (136-145)
[2017-12-27] MEDS ORDERED: Sodium Chloride 0.9% 1,000 ML IV SCH (06:30)
[2017-12-27] MEDS: Sodium Chloride 0.45% 1,000 ML IV SCH ×2 (07:40→17:57)
[2017-12-27] MEDS ORDERED: FLAXSEED OIL PO SCH (09:00)
[2017-12-27] MEDS ORDERED: Non-Formulary Item 1 EACH (Levothyroxine Sodium [Levothyroxine Sodium] 1 TAB) PO SCH (09:00)
[2017-12-27] MEDS ORDERED: Vit B12/Folic Acid/B6/Aa No.15 [Glycotrol Capsule] 1 CAP PO SCH (09:00)
[2017-12-27] MEDS: Sacubitril 24.5 MG/Valsartan 25.5 MG TABLET PO SCH ×2 (09:44→20:37)
[2017-12-27] MEDS: Fish Oil 1,000 MG CAP PO SCH (09:44)
[2017-12-27] MEDS: Famotidine 20 MG TAB PO SCH ×2 (09:44→20:36)
[2017-12-27] MEDS: Polyethylene Glycol 3350 17 GM Packet PO SCH (09:44)
[2017-12-27] MEDS: Multivitamin W/ Minerals 1 TAB PO SCH (09:44)
[2017-12-27] MEDS: Digoxin 0.25 MG TAB PO SCH (09:45)
[2017-12-27] MEDS: Carvedilol 25 MG TAB PO SCH ×2 (09:45→20:36)
[2017-12-27] MEDS ORDERED: guaiFENesin 100 MG/5 ML UDCUP PO PRN (09:46)
[2017-12-27] MEDS ORDERED: traMADol HCl 50 MG TAB PO PRN ×2 (10:47→17:14)
[2017-12-27] MEDS: Acetaminophen 500 MG TAB PO SCH ×2 (16:12→23:13)
[2017-12-27] MEDS: CEFAZOLIN 2 GM/50 ML-DEXTROSE 2 GM in Premix Bag 1 BAG IVPB SCH ×2 (16:13→23:14)
--- NOTE | 2017-12-27 16:32 | PRG ---
DATE OF SERVICE: 12/27/2017 HISTORY OF PRESENT ILLNESS: Mr. Rojo is a 77-year-old man who was previously admitted on 2017 following a ground level fall where he sustained multiple right-sided rib fractures. Patient wa s subsequently discharged and was seen in an outside hospital yesterday with chest pain and chest con gestion. Workup at that time included a chest x-ray. The patient was seen by the trauma team. He further underwent a CT scan of the chest which reveals l arge right pleural effusion likely hemothorax given the decreasing patient's hemoglobin from baseline . Currently, the patient is complaining of worsening cough, although he is unable to bring up any sputu m. He denies any fevers or chills. He denies any syncope or dyspnea. OBJECTIVE: VITAL SIGNS: Includes blood pressure 132/69, pulse is 69, respiratory rate is 16, temperature 97.8 d egrees Fahrenheit, oxygen saturation is 93% on 2 liters by nasal cannula oxygen. HEENT: Reveals normocephalic and atraumatic. Pupils equal, round, and reactive to light and accommo dation. He has no jugular venous distention noted. HEART: Reveals regular rate and rhythm, no murmurs or gallops auscultated. LUNGS: Reveals bibasilar rhonchi with diminished right basilar breath sounds. Breathing is otherwis e regular and unlabored. ABDOMEN: Soft, nontender, nondistended. Liver and spleen nonpalpable below costal margin. EXTREMITIES: Reveal 2+ radial and pedal pulses bilaterally. No ankle edema is present. NEUROLOGIC: Reveals no focal deficits present. LABORATORY DATA: Today includes a CBC with 12,400 white blood cells, hemoglobin and hematocrit 8.1 a nd 26.2 respectively. Platelet count is 461,000. Metabolic Profile: Sodium 138, potassium is 5.1, chloride is 105, bicarbonate is 23, BUN is 35, creatinine is 2.14, glucose is 131, total bilirubin is 1.3, AST and ALT normal at 16 and 14 respectively. I have personally reviewed the chest CT scan which reveals a large right pleural fluid collection lik neela hemothorax. IMPRESSION: 1. Acute delayed right hemothorax. 2. Acute blood loss anemia secondary to multiple right rib fractures. 3. History of recent fall. 4. Acute kidney injury likely secondary to acute blood loss anemia. 5. Qualitative coagulopathy. The patient is on Pradaxa. PLAN: 1. Anticoagulation will be withheld. 2. The patient will be resuscitated with 1 unit of packed red blood cells as well as intravenous flu ids. We will monitor his urinary output as endpoint of our resuscitation. 3. Chest tube will be placed tomorrow to evacuate the right hemothorax. 4. Patient will be started on empiric treatment for community-acquired pneumonia. Above findings and plan has been discussed with the patient who indicates understanding of informatio n given. I have answered his questions. The family was at bedside as well during this visit. I hav e answered all their questions.
[2017-12-27] MEDS: traMADol HCl 50 MG TAB PO SCH (17:57)
[2017-12-27] MEDS ORDERED: Sodium Chloride 0.9% 500 ML IVPB SCH (18:30)
[2017-12-27] MEDS: Simvastatin 40 MG TAB PO SCH (20:36)
[2017-12-27] MEDS: Amitriptyline HCl 25 MG TAB PO SCH (20:36)
[2017-12-27] MEDS ORDERED: CEFAZOLIN 2 GM in Sodium Chloride 0.9% 100 ML IVPB SCH (22:00)
[2017-12-28] MEDS: traMADol HCl 50 MG TAB PO SCH ×3 (03:56→17:23)
[2017-12-28] MEDS: Acetaminophen 500 MG TAB PO SCH ×5 (05:21→21:55)
[2017-12-28] MEDS: Levothyroxine Sodium 112 MCG TAB PO SCH (05:22)
[2017-12-28] MEDS: Levothyroxine Sodium 25 MCG TAB PO SCH (05:22)
[2017-12-28] MEDS: Sodium Chloride 0.45% 1,000 ML IV SCH (05:28)
[2017-12-28] MEDS ORDERED: Tamsulosin HCl 0.4 MG CAP PO SCH (07:15)
[2017-12-28 07:37] LABS: #Basophils 0.1 thou/uL (0.0-0.2); #Eosinphils 0.1 thou/uL (0.0-0.7); #Lymphocytes 1.6 thou/uL (1.20-3.40); #Monocytes 1.1 thou/uL (0.11-0.59); #Neutrophils 10.3 thou/uL (1.40-6.50); %Basophils 0.6 % (0.0-1.0); %Eosinophils 0.8 % (0.0-10.0); %Lymphocytes 12.4 % (21.0-51.0); %Monocytes 8.2 % (0.0-10.0); %Neutrophils 78.2 % (42.0-75.0); Hemoglobin 8.1 g/dL (14.0-18.0); Mean Corpuscular HGB CONC 30.6 g/dL (32.0-36.0); Mean Corpuscular Hemoglobin 30.2 pg (27.0-31.0); Mean Corpuscular Volume 98.8 fL (78.0-98.0); Mean Platelet Volume 7.1 fL (7.4-10.4); Platelet Count 411 thou/uL (130-400); RBC Distribution Width 14.9 % (11.5-14.5); Red Blood Cell (RBC) Count 2.68 mill/uL (4.70-6.10); White Blood Cell (WBC) Count 13.2 thou/uL (4.8-10.8)
[2017-12-28 07:55] LABS: Anion Gap 12 mmol/L (10-20); BUN (Urea Nitrogen) 47 mg/dL (8.4-25.7); Calc. Creatinine Clearance 41 mL/min (70-130); Calcium 8.1 mg/dL (7.8-10.44); Carbon Dioxide 22 mmol/L (23-31); Chloride 104 mmol/L (98-107); Estimated GFR-MDRD 24; Glucose 134 mg/dL (83-110); Magnesium 2.2 mg/dL (1.6-2.6); Phosphorus 4.6 mg/dL (2.3-4.7); Potassium 5.1 mmol/L (3.5-5.1); Sodium 133 mmol/L (136-145)
[2017-12-28] MEDS ORDERED: Lidocaine 1% (PF) 30 ML VIAL ONE (08:32)
[2017-12-28] MEDS ORDERED: Lidocaine 1% (PF) 30 ML VIAL SC SCH (08:45)
--- NOTE | 2017-12-28 08:52 | RAD ---
RADIOGRAPH CHEST 1 VIEW: Date: 12-28-17 Time: 8:07 a.m. HISTORY: 77-year-old male with chest pain and cough. COMPARISON: 12-26-17 at 4:40 p.m. FINDINGS: The right pleural effusion has increased in volume and now reaches the right apex. There is interval worsening of opacification of the underlying right lung, including total opacification of the right l ower lobe and right middle lobe. There is a relatively small residual region of aerated right parahil ar upper lobe. The left lung remains clear. No cardiomegaly. Sternotomy wires. Left subclavian implan table vascular access port. Right subclavian AICD. No pneumothorax. Left lateral costophrenic angle i s sharp. IMPRESSION: Significant interval increase in the volume of the right pleural effusion since two days ago. BRAYAN POS: GRERY
[2017-12-28] MEDS ORDERED: HOPS PO SCH (09:00)
[2017-12-28] MEDS ORDERED: BERBERINE PO SCH (09:00)
[2017-12-28] MEDS ORDERED: VIT D3 VIT K PO SCH (09:00)
[2017-12-28] MEDS: Digoxin 0.25 MG TAB PO SCH (09:02)
[2017-12-28] MEDS: Famotidine 20 MG TAB PO SCH ×2 (09:02→21:56)
[2017-12-28] MEDS: Carvedilol 25 MG TAB PO SCH ×2 (09:02→21:55)
[2017-12-28] MEDS: Multivitamin W/ Minerals 1 TAB PO SCH (09:02)
[2017-12-28] MEDS: Sacubitril 24.5 MG/Valsartan 25.5 MG TABLET PO SCH ×2 (09:02→21:54)
[2017-12-28] MEDS: Polyethylene Glycol 3350 17 GM Packet PO SCH (09:04)
[2017-12-28] MEDS: Fish Oil 1,000 MG CAP PO SCH (09:06)
[2017-12-28] MEDS: CEFAZOLIN 2 GM/50 ML-DEXTROSE 2 GM in Premix Bag 1 BAG IVPB SCH ×2 (09:07→18:09)
[2017-12-28] MEDS: Sodium Bicarbonate 100 MEQ in Dextrose 5% in Water 1,000 ML IV SCH ×2 (09:13→20:20)
--- NOTE | 2017-12-28 10:21 | OP ---
DATE OF PROCEDURE: 12/28/2017 PREOPERATIVE DIAGNOSIS: Large right hemothorax. POSTOPERATIVE DIAGNOSIS: Large right hemothorax. PROCEDURES PERFORMED: Placement of 32-Emirati right thoracostomy tube. INDICATIONS FOR PROCEDURE: A 77-year-old man sustained multiple right rib fractures following a grou nd level fall. He developed a delayed right hemothorax. On this admission, the patient was on Pradaxa and was kept off of the anticoagulation for 24 hours. The decision was made therefore to place a thoracostomy tube today to evacuate the right hemothorax. DESCRIPTION OF PROCEDURE: Informed consent obtained, the patient was placed in supine position. Rig ht chest wall sterilely prepped and draped in usual fashion. The skin at the fifth intercostal space right anterior axillary line was anesthetized with 1% lidocaine. A 1 cm transverse incision is made using a #10 scalpel. The right pleural cavity was bluntly entered using a hemostat. A 32 Emirati th oracostomy tube was inserted through the incision and placed in the pleural cavity and advanced super iorly and posteriorly. The tube is connected to pleurovac evacuating almost 4 liters of old blood. The tube is secured to the anterior chest wall using old silk suture. Sterile dressings were applied . Portable chest x-ray was obtained to confirm proper placement and monitor for complete evacuation of the right hemothorax. The patient remains hemodynamically stable following completion of the proc edure. Oxygen saturations immediately improved from high 80s to 94 on 2 liters by nasal cannula oxyg en.
[2017-12-28] MEDS ORDERED: Calcium Chloride 1 GM/10 ML Abboject SYRINGE IVP SCH (10:45)
--- NOTE | 2017-12-28 10:53 | PRG ---
DATE OF SERVICE: 12/28/2017 SUBJECTIVE: Mr. Rojo is a 77-year-old man who is status post ground level fall on 12/12/2017 arteaga staining multiple right rib fractures. The patient developed a delayed right hemothorax. Due to being anticoagulated we delayed a thoracostomy tube placement until today. Chest x-ray today reveals a large right hemothorax. The patient reports some dyspnea. His cough has improved since yesterday. OBJECTIVE: VITAL SIGNS: Includes, blood pressure 106/66, pulse 72, respiration rate is 20, temperature is 97.7 degrees Fahrenheit. Oxygen saturation is 93% on 3.5 liters by nasal cannula. HEENT: Reveals normocephalic and atraumatic. The pupils are equal, round, and reactive to light and accommodation. He has no jugular venous distention noted. HEART: Reveals regular rate and rhythm, no murmurs. LUNGS: Reveals bibasilar rhonchi with markedly diminished right-sided breath sounds. Breathing is o therwise unlabored. ABDOMEN: Soft, nontender, nondistended. EXTREMITIES: Reveals 2+ radial and pedal pulses bilaterally. No ankle edema is present. NEUROLOGIC: Reveals no focal deficits present. LABORATORY DATA: Includes CBC with 13,200 white blood cells, hemoglobin and hematocrit are 8.1 and 2 6.5 respectively. Platelet count is 411,000. Metabolic profile: Sodium 133, potassium 5.1, chlorid e is 104, bicarbonate 22, BUN 47, creatinine is 2.57, glucose is 134. Magnesium is 2.2, phosphorus 4 .6. IMPRESSION: 1. Delayed large right hemothorax. 2. Acute blood loss anemia. 3. Acute kidney injury likely secondary to acute blood loss anemia. PLAN: 1. A right thoracostomy tube has been placed. We will transfuse the patient with 1 unit of packed r ed blood cells and initiate bicarbonate infusion to treat the acute tubular necrosis. 2. We will increase activity as the patient may tolerate.
--- NOTE | 2017-12-28 11:53 | RAD ---
RADIOGRAPH CHEST 1 VIEW: Date: 12/28/2017 Time: 10:04 a.m. HISTORY: A 77-year-old male with right pleural effusion. COMPARISON: 12/28/2017 at 8:07 a.m. FINDINGS: There is a new right-sided chest tube with the distal tip overlying the right mid lung zone. The api silvia component of the right pleural effusion is much smaller and may have resolved. There is residual opacification at the right lung base, but there has been interval improvement in aeration of the res t of the right lung. Moderate air space density at the right mid lung zone, adjacent to the chest tu be. Right subclavian multilead AICD. Left subclavian implantable vascular access port. Left lung i s relatively clear. No pneumothorax is identified. IMPRESSION: Interval significant decrease in volume of the right pleural effusion, upon placement of right-sided thoracostomy tube, and resulting improved aeration of the right lung. BRAYAN [] POS: GERRY
[2017-12-28] MEDS: Insulin Regular 300 UNITS/3 ML VIAL SC PRN (15:57)
[2017-12-28] MEDS ORDERED: Sodium Chloride 0.9% 500 ML IV SCH (17:15)
[2017-12-28] MEDS ORDERED: Sodium Chloride 0.9% 500 ML IVPB PRN (17:55)
[2017-12-28 18:00] LABS: Band 6 % (5-11); Elliptocytes SLIGHT = 2-5 cells (100X) (0-1/hpf); Hemoglobin 7.6 g/dL (14.0-18.0); Hypochromia SLIGHT = 6-15 cells (100X) (0-5/hpf); Lymphocytes 7 % (21-51); MDiff Complete? YES; Mean Corpuscular Hemoglobin 29.9 pg (27.0-31.0); Mean Corpuscular Volume 93.4 fL (78.0-98.0); Mean Platelet Volume 6.7 fL (7.4-10.4); Monocytes 2 % (0-10); Neutrophil 85 % (42-75); PLT Morphology Comment Appears Adequate; Platelet Count 355 thou/uL (130-400); Polychromasia SLIGHT = 2-3 cells (100X) (0-2/hpf); RBC Distribution Width 14.2 % (11.5-14.5); Red Blood Cell (RBC) Count 2.55 mill/uL (4.70-6.10); White Blood Cell (WBC) Count 11.6 thou/uL (4.8-10.8)
[2017-12-28] MEDS ORDERED: Hydrocortisone Sod Succ/PF 100 mg/2 ml Vial IVP SCH ×2 (18:00)
[2017-12-28] MEDS: Simvastatin 40 MG TAB PO SCH (21:55)
[2017-12-28] MEDS: Tamsulosin HCl 0.4 MG CAP PO SCH (21:55)
[2017-12-28] MEDS: Amitriptyline HCl 25 MG TAB PO SCH (21:56)
[2017-12-28] MEDS ORDERED: Lorazepam 2 MG/ML VIAL SLOW IVP SCH (23:59)
[2017-12-29] MEDS: Sodium Bicarbonate 100 MEQ in Dextrose 5% in Water 1,000 ML IV SCH ×4 (00:01→20:46)
[2017-12-29] MEDS: Hydrocortisone Sod Succ/PF 100 mg/2 ml Vial IVP SCH ×4 (00:02→18:24)
[2017-12-29] MEDS: CEFAZOLIN 2 GM/50 ML-DEXTROSE 2 GM in Premix Bag 1 BAG IVPB SCH ×4 (00:02→18:24)
[2017-12-29] MEDS: traMADol HCl 50 MG TAB PO SCH (02:19)
[2017-12-29] MEDS ORDERED: traMADol HCl 50 MG TAB PO PRN (03:14)
[2017-12-29] MEDS: Acetaminophen 500 MG TAB PO SCH ×4 (04:49→21:00)
[2017-12-29 05:16] LABS: #Lymphocytes 1.4 thou/uL (1.20-3.40); #Monocytes 0.7 thou/uL (0.11-0.59); #Neutrophils 11.4 thou/uL (1.40-6.50); %Basophils 0.3 % (0.0-1.0); %Eosinophils 0.1 % (0.0-10.0); %Lymphocytes 10.2 % (21.0-51.0); %Monocytes 5.2 % (0.0-10.0); %Neutrophils 84.3 % (42.0-75.0); Hemoglobin 8.5 g/dL (14.0-18.0); Mean Corpuscular HGB CONC 31.9 g/dL (32.0-36.0); Mean Corpuscular Hemoglobin 29.8 pg (27.0-31.0); Mean Corpuscular Volume 93.7 fL (78.0-98.0); Mean Platelet Volume 6.7 fL (7.4-10.4); Platelet Count 378 thou/uL (130-400); RBC Distribution Width 14.3 % (11.5-14.5); Red Blood Cell (RBC) Count 2.84 mill/uL (4.70-6.10); White Blood Cell (WBC) Count 13.6 thou/uL (4.8-10.8)
[2017-12-29 05:37] LABS: Anion Gap 13 mmol/L (10-20); BUN (Urea Nitrogen) 51 mg/dL (8.4-25.7); Calc. Creatinine Clearance 47 mL/min (70-130); Carbon Dioxide 23 mmol/L (23-31); Chloride 103 mmol/L (98-107); Estimated GFR-MDRD 28; Glucose 185 mg/dL (83-110); Magnesium 2.5 mg/dL (1.6-2.6); Phosphorus 3.9 mg/dL (2.3-4.7); Potassium 4.4 mmol/L (3.5-5.1); Sodium 135 mmol/L (136-145)
[2017-12-29] MEDS: Insulin Regular 300 UNITS/3 ML VIAL SC PRN (06:03)
[2017-12-29] MEDS: Sacubitril 24.5 MG/Valsartan 25.5 MG TABLET PO SCH ×2 (08:30→20:29)
[2017-12-29] MEDS: Levothyroxine Sodium 25 MCG TAB PO SCH (08:30)
[2017-12-29] MEDS: Famotidine 20 MG TAB PO SCH ×2 (08:30→20:26)
[2017-12-29] MEDS: Levothyroxine Sodium 112 MCG TAB PO SCH (08:31)
[2017-12-29] MEDS: Digoxin 0.25 MG TAB PO SCH (08:31)
[2017-12-29] MEDS: Polyethylene Glycol 3350 17 GM Packet PO SCH (08:31)
[2017-12-29] MEDS: Fish Oil 1,000 MG CAP PO SCH (08:47)
[2017-12-29] MEDS: Carvedilol 25 MG TAB PO SCH ×2 (08:47→20:46)
[2017-12-29] MEDS: Multivitamin W/ Minerals 1 TAB PO SCH (08:47)
--- NOTE | 2017-12-29 09:26 | RAD ---
UPRIGHT PORTABLE CHEST ONE VIEW: History: 77-year-old male follow up right chest tube and abnormal findings in MRI chest. Comparison: 12-28-17 FINDINGS: Right ICD. Left central line. Right chest tube in place. Right sided pleural thickening or pleural ef fusion with parenchymal changes in the right perihilar region and right mid and lower lung zone with some elevation of the right hemidiaphragm. No pneumothorax. IMPRESSION: Persistent pleural and parenchymal opacity changes in the right chest with slightly more prominent ri ght apical pleural thickening or pleural fluid from prior study. No significant pneumothorax. Stable left chest. Continued short term follow up for clearing or stability. POS: REJI
[2017-12-29] MEDS: Tamsulosin HCl 0.4 MG CAP PO SCH (20:26)
[2017-12-29] MEDS: Lorazepam 1 MG TAB PO SCH (20:26)
[2017-12-29] MEDS: Amitriptyline HCl 25 MG TAB PO SCH (20:26)
[2017-12-29] MEDS: Simvastatin 40 MG TAB PO SCH (20:26)
--- NOTE | 2017-12-29 20:38 | PRG ---
DATE OF SERVICE: 12/29/2017 SUBJECTIVE: The patient is status post ground level fall that he sustained on 12/12/2017. He presen dandre back to the emergency room with delayed development of a right hemothorax. Yesterday, he underwe nt a right chest tube placement where he had a significantly large amount of retained bloody effusion approximately 4 liters. Specifically, overnight, he was placed on BiPAP, but due to his agitation, he would not wear it. He also had episodes of hypotension necessitating another transfusion of pack ed red blood cells. This morning, he is far more calm. He states that his pain is controlled and hi s family nurses report that he is far less agitated. PHYSICAL EXAMINATION: VITAL SIGNS: Temperature is 97.5, heart rate 84, respirations 22, oxygen saturation is 98% on room a ir. This was actually checked twice to verify. GENERAL: The patient is resting comfortably in bed. He is awake and conversant and appears to be at his baseline per his family at bedside. HEENT: Unremarkable. LUNGS: Show scant rhonchi bilaterally with encouragement that the patient may cough and clear this. HEART: Regular rate and rhythm. ABDOMEN: Soft, flat, nontender with active bowel sounds. EXTREMITIES: Neurovascularly intact x4. LABORATORY DATA: White blood cell count 13.6, hemoglobin 8.5, hematocrit 26.6, platelets 378. Sodiu m 135, potassium 4.4, chloride 103, CO2 of 23, BUN of 51, creatinine 2.25, glucose 185, magnesium 2.5 , phosphorus 3.9. Chest radiograph shows persistent pleural and parenchymal opacity changes in the r ight chest with slightly more prominent right apical pleural thickening or pleural fluid from the jonny or study. No significant pneumothorax. ASSESSMENT AND PLAN: 1. Once delayed large right hemothorax, status post right chest tube placement. 2. Acute blood loss anemia. 3. Acute kidney injury likely secondary to acute blood loss anemia. Plan will be to transfuse the patient 1 more unit of packed red blood cells. This will be a total of 3 for this visit. We will continue his sodium bicarbonate infusion and increase his rate to 150 mL per hour. We will repeat his labs and chest x-ray in the morning. Continue his supportive care. e evaluation and examination, laboratory and radiographic findings were discussed with Dr. Pablo whittaker this morning.
[2017-12-30] MEDS: Hydrocortisone Sod Succ/PF 100 mg/2 ml Vial IVP SCH ×4 (00:05→18:06)
[2017-12-30] MEDS ORDERED: Melatonin 3 MG TAB PO PRN (00:31)
[2017-12-30] MEDS: Melatonin 3 MG TAB PO PRN (00:40)
[2017-12-30] MEDS: Lorazepam 2 MG/ML VIAL IM SCH ×2 (00:44→01:29)
[2017-12-30] MEDS ORDERED: diphenhydrAMINE 50 MG/ML VIAL IM SCH (01:30)
[2017-12-30] MEDS ORDERED: Lorazepam 2 MG/ML VIAL IM SCH (01:30)
[2017-12-30] MEDS: CEFAZOLIN 2 GM/50 ML-DEXTROSE 2 GM in Premix Bag 1 BAG IVPB SCH ×3 (03:00→18:05)
[2017-12-30] MEDS: Sodium Bicarbonate 100 MEQ in Dextrose 5% in Water 1,000 ML IV SCH (03:05)
[2017-12-30] MEDS: Acetaminophen 500 MG TAB PO SCH ×3 (05:00→16:11)
[2017-12-30] MEDS: Levothyroxine Sodium 112 MCG TAB PO SCH (05:06)
[2017-12-30] MEDS: Levothyroxine Sodium 25 MCG TAB PO SCH (05:06)
--- NOTE | 2017-12-30 08:55 | RAD ---
CHEST 1 VIEW: HISTORY: Dyspnea. Followup. COMPARISON: 12/29/2017. FINDINGS: Cardiac silhouette is magnified and partially obscured by right basilar infiltrate and pleural fluid that are similar in appearance to the prior study. Fluid along the right lung apex is also stable. Right thoracostomy tube remains in place. Mediastinum is midline. Lines and tubes appear unchanged in position. IMPRESSION: Right pleural fluid, basilar infiltrate, and right thoracostomy tube appear unchanged in appearance. POS: REJI
[2017-12-30] MEDS ORDERED: BIMATOPROST OP SCH (09:00)
[2017-12-30] MEDS: Lorazepam 1 MG TAB PO SCH ×2 (10:00→22:14)
[2017-12-30] MEDS: Digoxin 0.25 MG TAB PO SCH (10:00)
--- NOTE | 2017-12-30 10:09 | CT ---
CT CHEST NONCONTRAST: HISTORY: Hemothorax. Followup. COMPARISON: 12/26/2017. FINDINGS: Right thoracostomy tube is now in place with tip directed towards the posterior right upper pleural s pace. Most of the right pleural fluid has been evacuated. Within the posterior inferior aspect of t he right pleural space, a loculated collection of fluid is 8.2 cm length x 9.1 cm width x 5.5 cm dept h. Hounsfield unit measurements show upper limits of normal density for fluid, consistent with blood product. No pneumothorax. Minimal left pleural fluid. Non-healed right posterolateral rib fractures are agai n demonstrated. Lack of contrast limits evaluation of soft tissues. There is calcification in the arterial structure s. Postoperative changes mediastinum. IMPRESSION: 1. Right thoracostomy tube with evacuation of most of the fluid. A loculated collection of fluid re anoop at the posterior inferior right pleural space at the costophrenic angle. 2. Right rib fractures and other findings are otherwise stable. POS: GERRY
[2017-12-30 10:15] LABS: #Eosinphils 0.2 thou/uL (0.0-0.7); #Lymphocytes 1.6 thou/uL (1.20-3.40); #Monocytes 0.8 thou/uL (0.11-0.59); #Neutrophils 7.4 thou/uL (1.40-6.50); %Basophils 0.2 % (0.0-1.0); %Eosinophils 2.2 % (0.0-10.0); %Lymphocytes 16.3 % (21.0-51.0); %Monocytes 7.8 % (0.0-10.0); %Neutrophils 73.5 % (42.0-75.0); Hemoglobin 9.6 g/dL (14.0-18.0); Mean Corpuscular HGB CONC 32.4 g/dL (32.0-36.0); Mean Corpuscular Hemoglobin 30.1 pg (27.0-31.0); Mean Corpuscular Volume 92.9 fL (78.0-98.0); Mean Platelet Volume 6.7 fL (7.4-10.4); Platelet Count 439 thou/uL (130-400); RBC Distribution Width 14.7 % (11.5-14.5); Red Blood Cell (RBC) Count 3.17 mill/uL (4.70-6.10)
[2017-12-30] MEDS ORDERED: Fentanyl 250 MCG/5 ML VIAL ONE (10:41)
[2017-12-30 10:45] LABS: Anion Gap 13 mmol/L (10-20); BUN (Urea Nitrogen) 35 mg/dL (8.4-25.7); Calc. Creatinine Clearance 83 mL/min (70-130); Calcium 8.2 mg/dL (7.8-10.44); Carbon Dioxide 26 mmol/L (23-31); Chloride 104 mmol/L (98-107); Estimated GFR-MDRD 55; Glucose 111 mg/dL (83-110); Magnesium 2.5 mg/dL (1.6-2.6); Phosphorus 2.4 mg/dL (2.3-4.7); Potassium 3.9 mmol/L (3.5-5.1); Sodium 139 mmol/L (136-145)
[2017-12-30] MEDS: Carvedilol 25 MG TAB PO SCH (10:47)
[2017-12-30] MEDS: Famotidine 20 MG TAB PO SCH (10:47)
[2017-12-30] MEDS: Fish Oil 1,000 MG CAP PO SCH (10:48)
[2017-12-30] MEDS: Latanoprost 0.005% Ophth Soln 2.5 ml Bottle EA EYE SCH (10:49)
[2017-12-30] MEDS: Multivitamin W/ Minerals 1 TAB PO SCH (10:49)
[2017-12-30] MEDS: MEMANTINE HCL PO SCH (10:49)
[2017-12-30] MEDS: DONEPEZIL HCL PO SCH (10:49)
[2017-12-30] MEDS: Sacubitril 24.5 MG/Valsartan 25.5 MG TABLET PO SCH (10:50)
[2017-12-30] MEDS: Teriparatide [Forteo] 20 MCG SC SCH (10:50)
[2017-12-30] MEDS: Polyethylene Glycol 3350 17 GM Packet PO SCH (10:50)
[2017-12-30] MEDS ORDERED: Midazolam HCl 2 mg/2 ml Vial ONE (11:33)
[2017-12-30] MEDS ORDERED: Bupivacaine HCl 0.5%/Epinephrine 1:200,000/PF 30 ml Vial ONE (11:38)
[2017-12-30] MEDS ORDERED: CEFAZOLIN 2 GM/50 ML BAG ONE (11:54)
--- NOTE | 2017-12-30 12:25 | PRG ---
DATE OF SERVICE: 12/30/2017 SUBJECTIVE: Mr. Rojo is a 77-year-old man who fell down from ground level position on 8, sustained a multiple right rib fractures, which was complicated by delayed right hemothorax. Thoracostomy tube was placed 2 days ago. A repeat chest x-ray reveals a retained loculated fluid col lection which was confirmed on chest CT scan. The patient was having difficulty sleeping last night according to report due to significant delirium. This morning, he is asleep, but easily awakens confused at times. He has no fevers or chills. He green s maintained poor oral intake. Urinary output is improving. He received 1 unit of packed red blood cells yesterday. OBJECTIVE: VITAL SIGNS: This morning includes blood pressure 122/68, pulse is 75, respiratory rate is 20, tempe rature is 98.6 degrees Fahrenheit, oxygen saturation is 93% on 2 liters by nasal cannula oxygen. HEART: Reveals regular rate and rhythm, no murmurs or gallops auscultated. CHEST: Lungs clear to auscultation bilaterally. Breathing is regular and unlabored. ABDOMEN: Soft, nontender, nondistended. EXTREMITIES: There are 2+ radial and pedal pulses bilaterally. No ankle edema is present. Please note the chest tube remains waterseal and has no air leaks. As stated above, I have personally reviewed the chest CT scan which revealed a loculated right pleura l fluid collection, highly suspicious for a retained hemothorax. LABORATORY DATA: Metabolic profile: Sodium 139, potassium 3.9, chloride is 104, bicarbonate 26, BUN 35, creatinine is improved to 1.27, glucose is 111, magnesium is 2.5, phosphorus is 2.4. CBC with 1 0,000 white blood cells, hemoglobin and hematocrit 9.6 and 29.5 respectively. Platelet count is 439, 000. IMPRESSION: 1. Stable acute blood loss anemia. 2. Resolving acute kidney injury. 3. Senile dementia of Alzheimer's type, with acute delirium. 4. Retained right hemothorax. PLAN: 1. We would discontinue bicarbonate infusion. 2. We will ask Cardiovascular Surgery to evaluate the patient for possible video-assisted thoracosco py and evacuation of retained hemothorax. 3. Continue with physical and occupational therapy and increase activity as tolerated. The above fi ndings and plan have been discussed with the patient and family at bedside. They indicated understat ing of information given. I answered their questions.
[2017-12-30] MEDS ORDERED: Norepinephrine 8 MG/0.9% NS 0 ML ONE (12:52)
[2017-12-30] MEDS ORDERED: Phenylephrine HCL 10 MG/ML VIAL ONE (12:52)
[2017-12-30] MEDS ORDERED: Succinylcholine Chloride 20 MG/ML 10 ml SYRINGE FS ONE (13:15)
[2017-12-30] MEDS ORDERED: PROPOFOL 200 MG/20 ML VIAL ONE (13:15)
[2017-12-30] MEDS ORDERED: Glycopyrrolate 0.2 MG/ML 5 ML SYRINGE ONE (13:15)
[2017-12-30] MEDS ORDERED: Lidocaine 1% PF 5 ML VIAL ONE (13:15)
[2017-12-30] MEDS ORDERED: Vecuronium 10 MG VIAL ONE (13:15)
[2017-12-30] MEDS ORDERED: Promethazine HCl 25 MG/ML VIAL IM PRN (14:09)
[2017-12-30] MEDS ORDERED: Ondansetron HCl/PF 4 MG/2 ML Vial IVP PRN (14:09)
[2017-12-30] MEDS ORDERED: Promethazine HCl 25 MG/ML VIAL SLOW IVP PRN (14:09)
[2017-12-30] MEDS ORDERED: Fentanyl 100 MCG/2 ML VIAL ONE (14:19)
[2017-12-30] MEDS ORDERED: Ondansetron PF 4 MG/2 ML Vial IVP PRN (14:35)
--- NOTE | 2017-12-30 14:35 | OP ---
DATE OF PROCEDURE: 12/30/2017 PROCEDURES PERFORMED: Right thoracoscopic evacuation of hemothorax and multiple rib blocks. PREOPERATIVE DIAGNOSIS: Retained right hemothorax. POSTOPERATIVE DIAGNOSIS: Retained right hemothorax. SURGEON: Naresh Vasquez M.D. ANESTHESIA: General endotracheal. INDICATIONS: The patient is a 77-year-old male with significant cardiac disease including atrial fib rillation and anterior wall dyskinesia, who is typically maintained on anticoagulants. About 2 weeks ago, he stumbled while taking out the trash and broke some ribs. His anticoagulants were held brief ly at that time, but since were restarted. He recently presented to the emergency room with shortnes s of breath and was found to have a large right-sided effusion, which was incompletely drained by tub e thoracostomy. He is now taken to the operating room for drainage of a retained hemothorax. FINDINGS: Extensive filmy adhesions within the chest cavity loculated in the pleural space about 500 -600 mL of a combination of liquid and clotted blood extracted from the chest, primarily from the pos terior costophrenic sulcus. NARRATIVE REPORT: After informed consent was obtained, the patient was taken to the operating room a nd placed in supine position on the operating table. After induction of general anesthesia and confi rmation of placement of his double lumen endotracheal tube, the patient was turned in the left latera l decubitus position. His existing chest tube was removed and his right chest was prepped and draped in sterile fashion. The chest tube site was probed and then a thoracoscope port and scope were inse rted. Visualization was poor because of adherence of the lung to the chest wall at that point direct ly in front of the camera. The port and scope were removed and thoracoscopic ring clamps were insert ed to gently take down some of those adhesions and to select a second site for port insertion postero laterally, that second site was opened with a knife and electrocautery and then the pleural space ent ered with blunt dissection and the wound probed. The thoracoscopic port was inserted and then throug h the original chest tube site, ring clamps were used to bluntly take down the adhesions loculated in the chest. An additional incision was made low in the chest for an anticipated exit site of a poste rior apical chest tube. Through those various incisions and port sites, the adhesions were taken wendy n. Bloody fluid was aspirated and clot was retrieved. A suction jet man device was used to irriga te and aspirate the chest until the lung was adequately freed up and the pleural space adequately isabel ined. A second chest tube exit site for an anteroapical chest tube was selected under thoracoscopic guidance. The chest tubes were measured to allow for cutting extra holes in those chest tubes and th en they were positioned anteriorly and posteriorly at the apex. They were secured to the skin with a suture and the lung was reexpanded. The scope and port were removed, 0.5% Marcaine with epinephrine was used to perform intercostal rib blocks for several intercostal spaces overlapping the port sites and chest tube sites aspirating on the needle to avoid intravascular injection. The port site and o riginal chest tube site were then closed in deep and superficial layers of Vicryl and then Vicryl sub cuticular suture and Steri-Strips for the skin. The chest tubes were connected to closed suction isabel inage and the patient was taken to the recovery area in good condition.
--- NOTE | 2017-12-30 15:23 | RAD ---
CHEST 1 VIEW: HISTORY: Status post thoracotomy. COMPARISON: Radiograph of the same day. FINDINGS: There is another right-side thoracostomy tube in place with the tip at the apex. The other thoracost andreas tube is similar. Slightly decreased right effusion. Port catheter tip is similar. Heart size is enlarged. Trace right apical pneumothorax. There is a left basilar airspace opacity. IMPRESSION: 1. Satisfactory position of the new right thoracostomy tube with tip at the lung apex. 2. New left basilar airspace opacity, likely atelectatic changes given its rapid development. POS: REJI
[2017-12-30] MEDS: Sodium Chloride 0.9% 1,000 ML IV SCH (16:11)
[2017-12-30] MEDS ORDERED: Melatonin 3 MG TAB PO SCH (17:00)
[2017-12-30] MEDS ORDERED: Lorazepam 2 MG/ML VIAL SLOW IVP SCH (18:30)
--- NOTE | 2017-12-30 21:03 | CON ---
DATE OF CONSULTATION: 12/30/2017 REQUESTING PHYSICIAN: Dr. Shah. CHIEF COMPLAINT: Shortness of breath. HISTORY OF PRESENT ILLNESS: The patient is a 77-year-old man with an extensive cardiac history that he is chronically maintained on Pradaxa. About 2 weeks ago, he stumbled while taking out trash to e curb and fell, breaking some ribs though uncomfortable. He had no overt complications related to i t. He had a new pneumothorax and a CT scan done at that time showed no evidence of effusion. He was discharged and according to his went to rehab. 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 Few days a go, he presented with shortness of breath and was found to have a large right effusion and his hemogl obin had fallen from the 10-12 range at the time of his original injury to 9 and then drifted on down reaching a christophe of 7.6. His Pradaxa was stopped again. Chest tube was placed, evacuating a large amount of fluid, but he had an incomplete clearance of opacities on his chest x-ray and CT scanning c onfirmed retention of a loculated effusion. PAST MEDICAL HISTORY: Significant for chronic lymphocytic leukemia for roughly 20 years, coronary ar adina disease. He underwent coronary artery bypass grafting about 15 years ago. He has chronic atria l fibrillation. PAST SURGICAL HISTORY: He has had an AICD pacer placed. He has had multiple orthopedic procedures. HOME MEDICATIONS: Normally are Forteo 20 mcg a day, Zocor 80 mg at bedtime, Seroquel 25 mg b.i.d., m emantine/benazepril 14/10 one a day, Mobic at bedtime, melatonin at bedtime as needed, Synthroid, Ati van b.i.d., insulin, digoxin, Pradaxa, Coreg, baby aspirin, amitriptyline, Lumigan eyedrops, Entresto . Reports confusion and dysphoria with codeine, hydromorphone and, morphine. SOCIAL HISTORY: He does not smoke. REVIEW OF SYSTEMS: Negative for any baseline shortness of breath. PHYSICAL EXAMINATION: GENERAL: Patient is arousable, but delirious and history is obtained from the patient's . VITAL SIGNS: Temperature is 98.6, heart rate 75, blood pressure 122/68 and room air O2 sats are in t he high 80s to mid 90s. LUNGS: He has diminished breath sounds at the right base. He has a right-sided chest tube in place. He has clear breath sounds on the left. He has a sternotomy incision scar and a palpable AICD in t he right upper chest. ABDOMEN: Soft and nontender. EXTREMITIES: He has palpable radial, femoral, right dorsalis pedis and left posterior tibial pulses. He has trace dependent edema. He has venous stasis pigmentation changes. He has scars on his left lower extremity consistent with vein harvest from his previous CABG. IMAGING DATA: His chest x-ray shows incomplete clearance of large effusion. This hospitalization th at is new compared to an x-ray 2-[address] scan shows loculation within the chest. His CT sca n from 2-3 weeks ago, he had no effusion or pneumothorax. PLAN: Retained loculated hemothorax. We will plan on thoracoscopic evacuation.
[2017-12-31] MEDS: Amitriptyline HCl 25 MG TAB PO SCH ×2 (01:30→22:19)
[2017-12-31] MEDS: Famotidine 20 MG TAB PO SCH ×3 (01:31→22:19)
[2017-12-31] MEDS: Carvedilol 25 MG TAB PO SCH ×3 (01:31→22:19)
[2017-12-31] MEDS: Sacubitril 24.5 MG/Valsartan 25.5 MG TABLET PO SCH ×3 (01:32→22:22)
[2017-12-31] MEDS: Tamsulosin HCl 0.4 MG CAP PO SCH ×2 (01:32→22:19)
[2017-12-31] MEDS: Simvastatin 40 MG TAB PO SCH ×2 (01:32→22:18)
[2017-12-31] MEDS: Acetaminophen 500 MG TAB PO SCH ×6 (01:33→22:19)
[2017-12-31] MEDS: Sodium Chloride 0.9% 1,000 ML IV SCH ×2 (01:35→10:33)
[2017-12-31] MEDS: CEFAZOLIN 2 GM/50 ML-DEXTROSE 2 GM in Premix Bag 1 BAG IVPB SCH ×3 (01:39→17:46)
[2017-12-31] MEDS: Hydrocortisone Sod Succ/PF 100 mg/2 ml Vial IVP SCH ×4 (02:55→22:18)
[2017-12-31 04:31] LABS: #Eosinphils 0.1 thou/uL (0.0-0.7); #Lymphocytes 1.6 thou/uL (1.20-3.40); #Monocytes 0.9 thou/uL (0.11-0.59); #Neutrophils 6.8 thou/uL (1.40-6.50); %Basophils 0.2 % (0.0-1.0); %Eosinophils 1.3 % (0.0-10.0); %Lymphocytes 17.2 % (21.0-51.0); %Neutrophils 72.3 % (42.0-75.0); Hemoglobin 9.8 g/dL (14.0-18.0); Mean Corpuscular HGB CONC 31.7 g/dL (32.0-36.0); Mean Corpuscular Hemoglobin 29.8 pg (27.0-31.0); Mean Corpuscular Volume 94.1 fL (78.0-98.0); Mean Platelet Volume 6.7 fL (7.4-10.4); Platelet Count 439 thou/uL (130-400); RBC Distribution Width 15.1 % (11.5-14.5); Red Blood Cell (RBC) Count 3.28 mill/uL (4.70-6.10); White Blood Cell (WBC) Count 9.4 thou/uL (4.8-10.8)
[2017-12-31 04:55] LABS: Anion Gap 15 mmol/L (10-20); BUN (Urea Nitrogen) 32 mg/dL (8.4-25.7); Calc. Creatinine Clearance 95 mL/min (70-130); Calcium 7.9 mg/dL (7.8-10.44); Carbon Dioxide 24 mmol/L (23-31); Chloride 108 mmol/L (98-107); Estimated GFR-MDRD 64; Glucose 135 mg/dL (83-110); Magnesium 2.7 mg/dL (1.6-2.6); Phosphorus 3.3 mg/dL (2.3-4.7); Potassium 4.5 mmol/L (3.5-5.1); Sodium 142 mmol/L (136-145)
[2017-12-31] MEDS ORDERED: Fentanyl 100 MCG/2 ML VIAL ONE (07:39)
[2017-12-31] MEDS: Levothyroxine Sodium 25 MCG TAB PO SCH (07:48)
[2017-12-31] MEDS: Levothyroxine Sodium 112 MCG TAB PO SCH (07:48)
[2017-12-31] MEDS ORDERED: Furosemide 100 MG/10 ML VIAL SLOW IVP SCH (08:30)
[2017-12-31] MEDS: Polyethylene Glycol 3350 17 GM Packet PO SCH (08:37)
[2017-12-31] MEDS: Digoxin 0.25 MG TAB PO SCH (08:38)
[2017-12-31] MEDS: Fish Oil 1,000 MG CAP PO SCH (08:38)
[2017-12-31] MEDS: Lorazepam 1 MG TAB PO SCH ×2 (08:39→22:19)
[2017-12-31] MEDS: Multivitamin W/ Minerals 1 TAB PO SCH (08:39)
[2017-12-31] MEDS: MEMANTINE HCL PO SCH (09:16)
[2017-12-31] MEDS: DONEPEZIL HCL PO SCH (09:16)
[2017-12-31] MEDS: Teriparatide [Forteo] 20 MCG SC SCH (09:17)
[2017-12-31] MEDS: Latanoprost 0.005% Ophth Soln 2.5 ml Bottle EA EYE SCH (09:32)
--- NOTE | 2017-12-31 10:32 | RAD ---
CHEST 1 VIEW: HISTORY: Thoracotomy. COMPARISON: Radiograph of prior day. FINDINGS: Thoracostomy tubes are similar. No significant pneumothorax is appreciated. Small effusion. Left b asilar airspace opacity is similar. IMPRESSION: No significant change. POS: [facility]
[2017-12-31] MEDS: Insulin Regular 300 UNITS/3 ML VIAL SC PRN (11:09)
--- NOTE | 2017-12-31 11:27 | PRG ---
DATE OF SERVICE: 12/31/2017 SUBJECTIVE: The patient is currently on the Critical Care Unit. He is status post a VATS procedure yesterday done by Dr. Vasquez. The patient was found to have a retained hemothorax, specifically large amount of clot and is hemithorax, which was evacuated yesterday. He tolerated this procedure well. He did stay in the critical care unit overnight just as precaution and he did well. He remain ed stable overnight and his agitation was markedly less last night, albeit not completely resolved. PHYSICAL EXAMINATION: VITAL SIGNS: Temperature is 98.4, heart rate 78, blood pressure 122/67, respirations 13, oxygen satu ration 100% on 3 liters via nasal cannula. GENERAL: The patient is resting comfortably in bed. He appears to be calm. He will interact slight ly and follows simple commands. HEENT: Unremarkable. LUNGS: Clear to auscultation bilaterally, though there is some scant rhonchi on the right. HEART: Regular rate and rhythm. ABDOMEN: Soft, flat, nontender with hypoactive bowel sounds. EXTREMITIES: Neurovascularly intact x4. He does have a slight pitting edema 1 to 2+ in his lower ex tremities. LABORATORY DATA: White blood cell count 9.4, hemoglobin 9.8, hematocrit 30.8, and platelets 439. So dium 142, potassium 4.5, chloride 108, CO2 of 24, BUN 32, creatinine 1.11, glucose 135, magnesium 2.7 , phosphorus 3.3. IMAGING DATA: Radiographs this morning of the chest shows no significant change from previous radiog raphs. With that note the previous/postoperative film did show improvement of the opacity in the rig ht lower chest. ASSESSMENT AND PLAN: 1. Status post delayed presentation of retained hemothorax. 2. Acute blood loss anemia, resolved. 3. Hypoxia, resolved. 4. Senile dementia of Alzheimer's type, with acute delirium. 5. Status post VATS procedure. PLAN: To move the patient to the surgical floor. Continue his chest tubes per Cardiovascular Surger y. Labs in the morning. Repeat chest x-ray in the morning and begin again physical and occupational therapy. The evaluation, examination, laboratory and radiographic findings will be discussed with t marielos attending after this dictation.
[2018-01-01] MEDS: CEFAZOLIN 2 GM/50 ML-DEXTROSE 2 GM in Premix Bag 1 BAG IVPB SCH ×3 (01:32→17:18)
[2018-01-01] MEDS: Hydrocortisone Sod Succ/PF 100 mg/2 ml Vial IVP SCH ×4 (03:45→22:02)
[2018-01-01] MEDS: Acetaminophen 500 MG TAB PO SCH ×4 (04:24→22:03)
[2018-01-01] MEDS: Levothyroxine Sodium 112 MCG TAB PO SCH (04:24)
[2018-01-01] MEDS: Levothyroxine Sodium 25 MCG TAB PO SCH (04:24)
[2018-01-01 05:49] LABS: #Eosinphils 0.3 thou/uL (0.0-0.7); #Lymphocytes 1.3 thou/uL (1.20-3.40); #Monocytes 0.6 thou/uL (0.11-0.59); #Neutrophils 5.6 thou/uL (1.40-6.50); %Basophils 0.2 % (0.0-1.0); %Eosinophils 3.3 % (0.0-10.0); %Lymphocytes 16.5 % (21.0-51.0); Hemoglobin 9.4 g/dL (14.0-18.0); Mean Corpuscular HGB CONC 32.5 g/dL (32.0-36.0); Mean Corpuscular Hemoglobin 30.3 pg (27.0-31.0); Mean Corpuscular Volume 93.3 fL (78.0-98.0); Mean Platelet Volume 6.4 fL (7.4-10.4); Platelet Count 439 thou/uL (130-400); RBC Distribution Width 14.8 % (11.5-14.5); Red Blood Cell (RBC) Count 3.09 mill/uL (4.70-6.10); White Blood Cell (WBC) Count 7.8 thou/uL (4.8-10.8)
[2018-01-01 06:06] LABS: Anion Gap 12 mmol/L (10-20); BUN (Urea Nitrogen) 26 mg/dL (8.4-25.7); Calc. Creatinine Clearance 116 mL/min (70-130); Calcium 8.2 mg/dL (7.8-10.44); Carbon Dioxide 28 mmol/L (23-31); Chloride 105 mmol/L (98-107); Estimated GFR-MDRD 81; Glucose 145 mg/dL (83-110); Magnesium 2.2 mg/dL (1.6-2.6); Phosphorus 2.9 mg/dL (2.3-4.7); Potassium 4.3 mmol/L (3.5-5.1); Sodium 141 mmol/L (136-145)
[2018-01-01] MEDS: Senokot S 8.6-50 MG TAB PO SCH ×2 (08:53→22:04)
[2018-01-01] MEDS: Latanoprost 0.005% Ophth Soln 2.5 ml Bottle EA EYE SCH (08:53)
[2018-01-01] MEDS: MEMANTINE HCL PO SCH (08:54)
[2018-01-01] MEDS: DONEPEZIL HCL PO SCH (08:54)
[2018-01-01] MEDS: Digoxin 0.25 MG TAB PO SCH (08:54)
[2018-01-01] MEDS: Famotidine 20 MG TAB PO SCH ×2 (08:55→22:03)
[2018-01-01] MEDS: Multivitamin W/ Minerals 1 TAB PO SCH (08:55)
[2018-01-01] MEDS: Fish Oil 1,000 MG CAP PO SCH (08:55)
[2018-01-01] MEDS: Sacubitril 24.5 MG/Valsartan 25.5 MG TABLET PO SCH ×2 (08:55→22:09)
[2018-01-01] MEDS: Polyethylene Glycol 3350 17 GM Packet PO SCH (08:56)
[2018-01-01] MEDS: Teriparatide [Forteo] 20 MCG SC SCH (08:57)
[2018-01-01] MEDS: Carvedilol 25 MG TAB PO SCH ×2 (09:08→22:04)
[2018-01-01] MEDS: Lorazepam 1 MG TAB PO SCH ×2 (09:08→22:03)
--- NOTE | 2018-01-01 09:36 | RAD ---
UPRIGHT PORTABLE CHEST 1 VIEW: HISTORY: Followup status post thoracotomy. COMPARISON: 12/31/2017. FINDINGS: Right chest tube is in place. Right transvenous pacemaker-defibrillator. Left subclavian catheter a nd injection port. Minimal cardiomegaly. Increased linear and interstitial markings bilaterally in the infrahilar region, somewhat greater on the right side, but overall stable. No evidence for a sig nificant pneumothorax. IMPRESSION: Stable postoperative changes. POS: [facility]
--- NOTE | 2018-01-01 13:21 | PRG ---
DATE OF SERVICE: 01/01/2018 SUBJECTIVE: Patient is hospital day #7 postop day #2 from a VATS procedure. He originally presented to the Emergency Department with retained hemothorax that was initially treated with a chest tube wi th continued opacity on his chest x-ray. He was evaluated for VATS procedure which he underwent and did well with this. Yesterday, he was moved from the Critical Care Unit to the surgical floor. Over night, he has had no issues. This morning, he is tolerating a diet. His pain was controlled and he is much more alert than he was yesterday. PHYSICAL EXAMINATION: VITAL SIGNS: Temperature is 98.0, heart rate 70, blood pressure 117/70, respirations 16, oxygen satu ration 95% on 2 liters via nasal cannula. GENERAL: The patient is resting comfortably in bed. He is awake, conversant, still has confusion, b ut his family at bedside said that he appears much closer to his normal self. HEENT: Unremarkable. LUNGS: Scant rhonchi on the right, clear on the left. HEART: Regular rate and rhythm. ABDOMEN: Soft, flat, nontender with active bowel sounds. EXTREMITIES: Neurovascularly intact x4. LABORATORY DATA: White blood cell count 7.8, hemoglobin 9.4, hematocrit 28.9, platelets 439. Sodium 141, potassium 4.3, chloride 105, CO2 is 28, BUN 26, creatinine 0.91, glucose 145, magnesium 2.2, ph osphorus 2.9. Chest radiograph shows stable postoperative changes. ASSESSMENT AND PLAN: 1. Status post delayed presentation of retained hemothorax. 2. Status post VATS procedure. 3. Acute blood loss anemia, resolved. 4. Hypoxia, resolved. 5. Senile dementia of Alzheimer's type, with acute delirium, improved. Plan will be to continue supportive care. Chest tubes per Dr. Vasquez. We will attempt to have physical and occupational therapy worked with the patient today. Regular diet and await final placem ent decisions. This case was discussed with Dr. Shah this morning.
[2018-01-01] MEDS: Insulin Regular 300 UNITS/3 ML VIAL SC PRN (17:15)
[2018-01-01] MEDS: Simvastatin 40 MG TAB PO SCH (22:03)
[2018-01-01] MEDS: Amitriptyline HCl 25 MG TAB PO SCH (22:03)
[2018-01-01] MEDS: Tamsulosin HCl 0.4 MG CAP PO SCH (22:04)
[2018-01-02] MEDS: CEFAZOLIN 2 GM/50 ML-DEXTROSE 2 GM in Premix Bag 1 BAG IVPB SCH (01:01)
[2018-01-02] MEDS: Acetaminophen 500 MG TAB PO SCH ×4 (03:43→22:10)
[2018-01-02] MEDS: Hydrocortisone Sod Succ/PF 100 mg/2 ml Vial IVP SCH ×4 (03:43→22:09)
[2018-01-02] MEDS: Levothyroxine Sodium 25 MCG TAB PO SCH (06:22)
[2018-01-02] MEDS: Levothyroxine Sodium 112 MCG TAB PO SCH (06:22)
[2018-01-02] MEDS: Insulin Regular 300 UNITS/3 ML VIAL SC PRN ×3 (06:43→17:17)
--- NOTE | 2018-01-02 08:25 | RAD ---
PORTABLE CHEST ONE VIEW: Date: 01-02-18 Time: 12:27 a.m. History: Status post thoracotomy. FINDINGS/IMPRESSION: Comparison made with exam of 12-31-17. Right sided thoracotomy tubes in place. Changes of median sternotomy again seen. Right sided AICD and left subclavian port-a-cath unchanged in position. The heart size is stable. Interval improvement is seen in the left basilar artery airspace opacity. A small right pleural effusion is again noted. No pneumothoraces are identified. POS: [facility]
[2018-01-02] MEDS: Digoxin 0.25 MG TAB PO SCH (10:04)
[2018-01-02] MEDS: Famotidine 20 MG TAB PO SCH ×2 (10:05→22:13)
[2018-01-02] MEDS: Sacubitril 24.5 MG/Valsartan 25.5 MG TABLET PO SCH ×2 (10:05→22:09)
[2018-01-02] MEDS: Senokot S 8.6-50 MG TAB PO SCH ×2 (10:05→22:09)
[2018-01-02] MEDS: Lorazepam 1 MG TAB PO SCH ×2 (10:05→22:10)
[2018-01-02] MEDS: Fish Oil 1,000 MG CAP PO SCH (10:05)
[2018-01-02] MEDS: Multivitamin W/ Minerals 1 TAB PO SCH (10:06)
[2018-01-02] MEDS: Carvedilol 25 MG TAB PO SCH ×2 (10:06→22:10)
[2018-01-02] MEDS: Teriparatide [Forteo] 20 MCG SC SCH (10:08)
[2018-01-02] MEDS: Polyethylene Glycol 3350 17 GM Packet PO SCH (10:08)
[2018-01-02] MEDS: DONEPEZIL HCL PO SCH (10:09)
[2018-01-02] MEDS: MEMANTINE HCL PO SCH (10:09)
[2018-01-02] MEDS: Latanoprost 0.005% Ophth Soln 2.5 ml Bottle EA EYE SCH (10:12)
[2018-01-02] MEDS: Cefdinir 300 MG CAP PO SCH ×2 (10:22→22:09)
--- NOTE | 2018-01-02 11:01 | PRG ---
DATE OF SERVICE: 01/02/2018 SUBJECTIVE: Mr. Rojo now 77-year-old man who suffered multiple right rib fractures following a ground level fall. The patient developed a delayed right hemothorax which was first treated with a t ube thoracostomy. Finding retained right hemothorax. The patient underwent a video assisted thoraco scopy and evacuation of retained hemothorax. He is postoperative day #3 today status post VATS. The patient is awake and alert this morning. Reports adequate pain control. He is less impulsive. He did tolerate breakfast and is participating with physical and occupational therapy. OBJECTIVE: VITAL SIGNS: This morning includes blood pressure 111/73, pulse is 63, respiratory rate is 18, tempe rature is 97.5 degrees Fahrenheit, oxygen saturation is 97% on room air. HEART: Reveals regular rate and rhythm, no murmurs or gallops auscultated. CHEST: Clear to auscultation bilaterally. Breathing regular and unlabored. Right chest tube is in place, no air leaks. A repeat chest x-ray today reveals a better aeration of the right lung moore. There is a small right pleural effusion present. No pneumothorax is noted. ABDOMEN: Soft, nontender, nondistended. NEUROLOGIC: Reveals no focal deficits present. LABORATORY FINDINGS: Includes a CBC yesterday with 7800 white blood cells, hemoglobin and hematocrit 9.4 and 28.9 respectively. Platelet count is 439,000. Metabolic profile yesterday as well is noted with sodium 141, potassium 4.3, chloride is 105, bicarbonate is 28, BUN 26, creatinine 0.91, glucose 145, magnesium 2.2, and phosphorus 2.9. IMPRESSION: 1. Postoperative day #3 status post video-assisted thoracoscopy and evacuation of retained right hem othorax. 2. Resolving acute post-traumatic delirium. PLAN: Continue to increase activity per physical and occupational therapy. A chest tube placed to w aterseal to be removed at the discretion of the Cardiovascular Surgery. [facility]
[2018-01-02] MEDS: Simvastatin 40 MG TAB PO SCH (22:09)
[2018-01-02] MEDS: Tamsulosin HCl 0.4 MG CAP PO SCH (22:09)
[2018-01-03] MEDS: Hydrocortisone Sod Succ/PF 100 mg/2 ml Vial IVP SCH ×5 (04:36→21:05)
[2018-01-03] MEDS: Levothyroxine Sodium 25 MCG TAB PO SCH (05:43)
[2018-01-03] MEDS: Acetaminophen 500 MG TAB PO SCH ×4 (05:43→21:03)
[2018-01-03] MEDS: Levothyroxine Sodium 112 MCG TAB PO SCH (05:43)
[2018-01-03] MEDS: Cefdinir 300 MG CAP PO SCH ×2 (08:47→20:20)
[2018-01-03] MEDS: Famotidine 20 MG TAB PO SCH ×2 (08:48→20:20)
[2018-01-03] MEDS: Multivitamin W/ Minerals 1 TAB PO SCH (08:48)
[2018-01-03] MEDS: Carvedilol 25 MG TAB PO SCH ×2 (08:48→20:20)
[2018-01-03] MEDS: Digoxin 0.25 MG TAB PO SCH (08:48)
[2018-01-03] MEDS: Senokot S 8.6-50 MG TAB PO SCH ×3 (08:51→20:21)
[2018-01-03] MEDS: Polyethylene Glycol 3350 17 GM Packet PO SCH (08:58)
[2018-01-03] MEDS: Fish Oil 1,000 MG CAP PO SCH (08:58)
[2018-01-03] MEDS: Lorazepam 1 MG TAB PO SCH ×2 (08:58→20:20)
[2018-01-03] MEDS: Sacubitril 24.5 MG/Valsartan 25.5 MG TABLET PO SCH ×2 (09:00→21:01)
[2018-01-03] MEDS: DONEPEZIL HCL PO SCH (09:00)
[2018-01-03] MEDS: MEMANTINE HCL PO SCH (09:00)
[2018-01-03] MEDS: Teriparatide [Forteo] 20 MCG SC SCH (09:01)
[2018-01-03] MEDS: Latanoprost 0.005% Ophth Soln 2.5 ml Bottle EA EYE SCH (09:04)
--- NOTE | 2018-01-03 09:32 | RAD ---
CHEST ONE VIEW: Indication: History of pneumothorax. IMPRESSION: Exam is not appreciably changed from comparison of 01-02-18. Left sided thoracostomy tubes are unchanged. Cardiomegaly, AICD, right sided thoracostomy tube is pre sent. Left sided chest wall port is unchanged. POS: [facility]
[2018-01-03 14:14] LABS: Actual Bicarbonate (HCO3a) 27.8 mEq/L (22-28); Analyzer IN Cardio OR; Base Excess (BEa) 3.3 mEq/L (-2.0 to +3.0); CO2 Tension 42.5 mmHg (35.0-45.0); Calcium, Ionized 1.07 mmol/L (1.12-1.30); Carboxyhemoglobin (COHb) 0.2 gm% (0.0-3.0); Hemoglobin (Hb) 9.7 g/dL (14.0-18.0); O2 Tension (PaO2) 76.8 mmHg (> 70.0); Potassium - ABG Lab 3.91 mmol/L (3.70-5.30); pH, Arterial 7.43 (7.35-7.45)
[2018-01-03 14:35] LABS: Puncture Site ALINE
[2018-01-03] MEDS: Insulin Regular 300 UNITS/3 ML VIAL SC PRN (15:46)
--- NOTE | 2018-01-03 17:27 | PRG ---
DATE OF SERVICE: 01/03/2018 SUBJECTIVE: This is a 77-year-old male, who is status post ground level fall in early December, suffering multiple right rib fractures, presenting to the ER after development of delayed right hemothorax, which has been treated with VATS procedure. He is postop day 4 and recovering well as expected. The patient is awake and alert this morning with no complaints. He has had some of his breakfast, and he is tolerating p.o. intake well. His only complaint is food is not to his flavor preferences. The patient is also working with Physical and Occupational Therapy. No other complaints at this time. OBJECTIVE: VITAL SIGNS: Blood pressure 146/73, pulse 67, respirations 16, O2 saturation 95% on 2 L nasal cannula at 7:58 a.m., at 12:06 p.m., the patient is 91% on room air. HEART: Regular rate and rhythm. No murmurs. CHEST: Clear to auscultation bilaterally. Breathing unlabored. Right chest tube is in place with minimal air leak. ABDOMEN: Soft, nondistended. NEUROLOGIC: No focal deficit. LABORATORY FINDINGS: Glucose 195. There are no other laboratory findings for this day. IMPRESSION: 1. Postoperative day #4, status post video-assisted thoracoscopy and evacuation of retained right hemothorax. 2. Resolving acute post-traumatic delirium. 3. Pneumonia. PLAN: We will continue physical and occupational therapy and pain management. We will continue all other supportive therapies. The chest tube is at water seal and will be removed per Cardiovascular Surgery. The patient will take 2 more days of cefdinir for completion of antibiotics. We will communicate with Cardiovascular Surgery for recommendations on when to resume Pradaxa at home. Planning for discharge to swing bed in the next few days. Job ID: [id number]
[2018-01-03] MEDS: Simvastatin 40 MG TAB PO SCH (20:20)
[2018-01-03] MEDS: Tamsulosin HCl 0.4 MG CAP PO SCH (20:20)
[2018-01-03] MEDS: Amitriptyline HCl 25 MG TAB PO SCH (20:21)
[2018-01-04] MEDS: Acetaminophen 500 MG TAB PO SCH ×4 (03:35→21:21)
[2018-01-04] MEDS: Hydrocortisone Sod Succ/PF 100 mg/2 ml Vial IVP SCH ×6 (03:36→21:25)
[2018-01-04] MEDS: Levothyroxine Sodium 25 MCG TAB PO SCH (05:37)
[2018-01-04] MEDS: Levothyroxine Sodium 112 MCG TAB PO SCH (05:37)
[2018-01-04 07:02] LABS: #Eosinphils 0.4 thou/uL (0.0-0.7); #Lymphocytes 1.6 thou/uL (1.20-3.40); #Monocytes 0.5 thou/uL (0.11-0.59); #Neutrophils 6.2 thou/uL (1.40-6.50); %Basophils 0.5 % (0.0-1.0); %Eosinophils 4.7 % (0.0-10.0); %Lymphocytes 18.4 % (21.0-51.0); %Monocytes 5.8 % (0.0-10.0); %Neutrophils 70.6 % (42.0-75.0); Hemoglobin 9.8 g/dL (14.0-18.0); Mean Corpuscular HGB CONC 31.9 g/dL (32.0-36.0); Mean Corpuscular Hemoglobin 29.6 pg (27.0-31.0); Mean Corpuscular Volume 92.6 fL (78.0-98.0); Mean Platelet Volume 6.4 fL (7.4-10.4); Platelet Count 450 thou/uL (130-400); RBC Distribution Width 14.8 % (11.5-14.5); Red Blood Cell (RBC) Count 3.32 mill/uL (4.70-6.10); White Blood Cell (WBC) Count 8.8 thou/uL (4.8-10.8)
--- NOTE | 2018-01-04 07:46 | RAD ---
UPRIGHT PORTABLE CHEST ONE VIEW: History: 77-year-old male status post thoracotomy. Comparison: 01-03-18 FINDINGS: Stable post-operative changes in the right chest. Post underlying sternotomy. Left subclavian cathete r injection port. Right ICD. IMPRESSION: Stable post-operative changes right chest. NO significant new process. POS: [facility]
[2018-01-04] MEDS: Sacubitril 24.5 MG/Valsartan 25.5 MG TABLET PO SCH ×2 (08:56→21:22)
[2018-01-04] MEDS: Cefdinir 300 MG CAP PO SCH ×2 (08:56→21:21)
[2018-01-04] MEDS: Lorazepam 1 MG TAB PO SCH ×2 (08:57→21:21)
[2018-01-04] MEDS: Fish Oil 1,000 MG CAP PO SCH (08:57)
[2018-01-04] MEDS: Famotidine 20 MG TAB PO SCH ×2 (08:57→21:22)
[2018-01-04] MEDS: Digoxin 0.25 MG TAB PO SCH (08:58)
[2018-01-04] MEDS: Senokot S 8.6-50 MG TAB PO SCH ×2 (08:58→21:21)
[2018-01-04] MEDS: Polyethylene Glycol 3350 17 GM Packet PO SCH (08:58)
[2018-01-04] MEDS: Multivitamin W/ Minerals 1 TAB PO SCH (08:59)
[2018-01-04] MEDS: Carvedilol 25 MG TAB PO SCH ×2 (08:59→21:25)
[2018-01-04] MEDS: MEMANTINE HCL PO SCH (09:01)
[2018-01-04] MEDS: DONEPEZIL HCL PO SCH (09:01)
[2018-01-04] MEDS: Teriparatide [Forteo] 20 MCG SC SCH (09:02)
[2018-01-04] MEDS: Latanoprost 0.005% Ophth Soln 2.5 ml Bottle EA EYE SCH ×2 (11:03→11:18)
[2018-01-04] MEDS: Insulin Regular 300 UNITS/3 ML VIAL SC PRN (12:39)
[2018-01-04] MEDS: Simvastatin 40 MG TAB PO SCH (21:21)
[2018-01-04] MEDS: Tamsulosin HCl 0.4 MG CAP PO SCH (21:21)
[2018-01-04] MEDS: Amitriptyline HCl 25 MG TAB PO SCH (21:22)
[2018-01-05] MEDS: Hydrocortisone Sod Succ/PF 100 mg/2 ml Vial IVP SCH ×4 (03:17→20:45)
[2018-01-05] MEDS: Acetaminophen 500 MG TAB PO SCH ×4 (04:59→20:44)
[2018-01-05] MEDS: Levothyroxine Sodium 25 MCG TAB PO SCH (05:38)
[2018-01-05] MEDS: Levothyroxine Sodium 112 MCG TAB PO SCH (05:39)
[2018-01-05 07:45] LABS: Phosphorus 3.1 mg/dL (2.3-4.7)
[2018-01-05 07:48] LABS: Anion Gap 12 mmol/L (10-20); BUN (Urea Nitrogen) 15 mg/dL (8.4-25.7); Calc. Creatinine Clearance 124 mL/min (70-130); Calcium 8.5 mg/dL (7.8-10.44); Carbon Dioxide 29 mmol/L (23-31); Chloride 104 mmol/L (98-107); Estimated GFR-MDRD 88; Glucose 127 mg/dL (83-110); Magnesium 1.8 mg/dL (1.6-2.6); Potassium 3.9 mmol/L (3.5-5.1); Sodium 141 mmol/L (136-145)
--- NOTE | 2018-01-05 07:53 | RAD ---
SINGLE VIEW OF THE CHEST: COMPARISON: 01/04/2018. HISTORY: Status post thoracotomy. FINDINGS: A single view of the chest shows an enlarged but stable cardiomediastinal silhouette. The patient is status post sternotomy. The pacemaker and MediPort are unchanged in position. The right-sided ches t tubes are unchanged in position. No pneumothorax is seen. IMPRESSION: Stable exam. POS: [facility]
[2018-01-05] MEDS: Cefdinir 300 MG CAP PO SCH ×2 (08:48→20:45)
[2018-01-05] MEDS: Famotidine 20 MG TAB PO SCH ×2 (08:49→20:44)
[2018-01-05] MEDS: Carvedilol 25 MG TAB PO SCH ×2 (08:49→20:44)
[2018-01-05] MEDS: Polyethylene Glycol 3350 17 GM Packet PO SCH (08:50)
[2018-01-05] MEDS: Sacubitril 24.5 MG/Valsartan 25.5 MG TABLET PO SCH ×2 (08:50→20:50)
[2018-01-05] MEDS: Senokot S 8.6-50 MG TAB PO SCH ×2 (08:50→20:44)
[2018-01-05] MEDS: Lorazepam 1 MG TAB PO SCH ×2 (08:50→20:44)
[2018-01-05] MEDS: Fish Oil 1,000 MG CAP PO SCH (08:50)
[2018-01-05] MEDS: DONEPEZIL HCL PO SCH (08:51)
[2018-01-05] MEDS: MEMANTINE HCL PO SCH (08:51)
[2018-01-05] MEDS: Multivitamin W/ Minerals 1 TAB PO SCH (08:51)
[2018-01-05] MEDS: Digoxin 0.25 MG TAB PO SCH (08:52)
[2018-01-05] MEDS: Teriparatide [Forteo] 20 MCG SC SCH (08:53)
[2018-01-05] MEDS: Latanoprost 0.005% Ophth Soln 2.5 ml Bottle EA EYE SCH (08:56)
--- NOTE | 2018-01-05 09:57 | PRG ---
DATE OF SERVICE: 01/04/2018 SUBJECTIVE: This is a 77-year-old male, who is status post ground level fall in December, who suffered multiple right rib fractures and presented to the ER after delayed hemothorax, which has been treated with VATS procedure, postop day 5, and recovering well as excepted. The patient is on water seal with chest tube still in place with output around 300 mL over the last 24 hours. The patient reports feeling well this morning and with no significant complaints. Reports good p.o. toleration of diet. He is working with occupational therapy and physical therapy. OBJECTIVE: VITAL SIGNS: Blood pressure 102/51, O2 sat 94% on room air, pulse 64, respirations 18, and temperature 97.3 degrees. GENERAL: No acute distress. Alert and awake. HEENT: EOMI. Moist mucosal membranes. NECK: Trachea midline. Soft. CARDIOVASCULAR: Regular rate and rhythm. No murmurs. PULMONARY: Clear to auscultation bilaterally. Right chest tube in place. ABDOMEN: Soft and nontender. Normal bowel sounds. LABORATORY DATA: White blood cell count 8.8, hemoglobin 9.8, hematocrit 30.7, and platelet count 450. Chemistry, glucose 192. ASSESSMENT: 1. Postoperative day #5, status post video-assisted thoracoscopic surgery and evacuation of right hemothorax. 2. Resolving acute post-traumatic delirium. 3. Pneumonia. PLAN: Continue physical and occupational therapy. Continue pain management. Chest tube to be pulled per Cardiovascular Surgery's recommendations on waiting until output is less than 101 mL. The patient will take one more day of cefdinir for completion of antibiotics. Repeat chest x-ray in the morning. This patient was seen and evaluated by Dr. Shah on morning rounds. Plan was discussed with the patient, who verbalized understanding and agreed. Job ID: [id number]
[2018-01-05 11:17] LABS: #Basophils 0.1 thou/uL (0.0-0.2); #Eosinphils 0.4 thou/uL (0.0-0.7); #Lymphocytes 1.6 thou/uL (1.20-3.40); #Monocytes 0.5 thou/uL (0.11-0.59); #Neutrophils 5.2 thou/uL (1.40-6.50); %Basophils 0.9 % (0.0-1.0); %Eosinophils 4.8 % (0.0-10.0); %Lymphocytes 20.5 % (21.0-51.0); %Monocytes 6.3 % (0.0-10.0); %Neutrophils 67.4 % (42.0-75.0); Hemoglobin 11.1 g/dL (14.0-18.0); Mean Corpuscular HGB CONC 31.9 g/dL (32.0-36.0); Mean Corpuscular Hemoglobin 29.2 pg (27.0-31.0); Mean Corpuscular Volume 91.7 fL (78.0-98.0); Mean Platelet Volume 6.3 fL (7.4-10.4); Platelet Count 521 thou/uL (130-400); RBC Distribution Width 15.1 % (11.5-14.5); Red Blood Cell (RBC) Count 3.78 mill/uL (4.70-6.10); White Blood Cell (WBC) Count 7.7 thou/uL (4.8-10.8)
--- NOTE | 2018-01-05 12:06 | PRG ---
DATE OF SERVICE: 01/05/2018 SUBJECTIVE: This is a 77-year-old male, status post ground level fall, who suffered right-sided rib fractures and had delayed onset hemothorax. The patient is status post VATS procedure, postoperative day 6, and has been recovering well as expected. The patient has a J-tube in place and only complains of mild epigastric pain, but reports continued p.o. toleration. He is working with occupational therapy and physial therapy. OBJECTIVE: VITAL SIGNS: Blood pressure 121/75, heart rate 70, respirations 22, O2 sat 93% on room air, and temperature 97.5. GENERAL: No acute distress. Alert and awake. HEENT: EOMI. Moist mucosal membranes. NECK: Trachea midline. Soft. CARDIOVASCULAR: Regular rate and rhythm. No murmurs. PULMONARY: Clear to auscultation bilaterally. Chest tube in place. ABDOMEN: Soft and nontender. Normal abdominal sounds. NEUROLOGIC: No acute focal deficit. Alert and oriented. LABORATORY DATA: Sodium 141, potassium 3.9, BUN 15, creatinine 0.85, and glucose 127. ASSESSMENT: 1. Postoperative day 6 status post video-assisted thoracoscopic surgery and evacuation of right hemothorax. 2. Resolving acute post-traumatic delirium. 3. Pneumonia. PLAN: Continue physical and occupational therapy. Continue pain management. Chest tube management per Cardiovascular Surgery, Dr. Vasquez, who recommends keeping chest tube in place until output is 100 mL or less. The patient will take cefdinir today for treatment of pneumonia and will discontinue tomorrow. Repeat chest x-ray in the morning. This patient was seen and evaluated by Dr. Hair on morning rounds and plan was discussed with the patient who is in agreement and verbalized understanding. Job ID: [id number]
[2018-01-05] MEDS: Insulin Regular 300 UNITS/3 ML VIAL SC PRN ×2 (12:25→17:41)
[2018-01-05] MEDS: Tamsulosin HCl 0.4 MG CAP PO SCH (20:44)
[2018-01-05] MEDS: Simvastatin 40 MG TAB PO SCH (20:45)
[2018-01-05] MEDS: Amitriptyline HCl 25 MG TAB PO SCH (20:45)
[2018-01-06] MEDS: Hydrocortisone Sod Succ/PF 100 mg/2 ml Vial IVP SCH ×4 (04:52→20:12)
[2018-01-06] MEDS: Acetaminophen 500 MG TAB PO SCH ×4 (04:52→20:12)
[2018-01-06] MEDS: Levothyroxine Sodium 112 MCG TAB PO SCH (05:04)
[2018-01-06] MEDS: Levothyroxine Sodium 25 MCG TAB PO SCH (05:04)
[2018-01-06 06:25] LABS: #Basophils 0.1 thou/uL (0.0-0.2); #Eosinphils 0.3 thou/uL (0.0-0.7); #Lymphocytes 2.5 thou/uL (1.20-3.40); #Monocytes 0.6 thou/uL (0.11-0.59); #Neutrophils 5.4 thou/uL (1.40-6.50); %Basophils 0.6 % (0.0-1.0); %Eosinophils 3.2 % (0.0-10.0); %Lymphocytes 27.7 % (21.0-51.0); %Monocytes 7.1 % (0.0-10.0); %Neutrophils 61.4 % (42.0-75.0); Hemoglobin 11.8 g/dL (14.0-18.0); Mean Corpuscular HGB CONC 31.7 g/dL (32.0-36.0); Mean Corpuscular Hemoglobin 29.1 pg (27.0-31.0); Mean Corpuscular Volume 91.9 fL (78.0-98.0); Mean Platelet Volume 6.6 fL (7.4-10.4); Platelet Count 488 thou/uL (130-400); RBC Distribution Width 15.1 % (11.5-14.5); Red Blood Cell (RBC) Count 4.05 mill/uL (4.70-6.10); White Blood Cell (WBC) Count 8.8 thou/uL (4.8-10.8)
--- NOTE | 2018-01-06 08:51 | RAD ---
CHEST 1 VIEW: HISTORY: A 77-year-old male with a history of followup thoracotomy. FINDINGS: Two right chest tubes remain in place with right ICD and left subclavian catheter and injection port. Minimal increased pleural and parenchymal opacity changes in the right chest. No evidence for sign ificant pneumothorax. The left lung is clear. IMPRESSION: Overall stable to slightly improved appearance of the right chest. No new process. POS: [facility]
[2018-01-06] MEDS: Polyethylene Glycol 3350 17 GM Packet PO SCH (08:56)
[2018-01-06] MEDS: Fish Oil 1,000 MG CAP PO SCH (08:57)
[2018-01-06] MEDS: Sacubitril 24.5 MG/Valsartan 25.5 MG TABLET PO SCH ×2 (08:57→20:12)
[2018-01-06] MEDS: Multivitamin W/ Minerals 1 TAB PO SCH (08:59)
[2018-01-06] MEDS: Lorazepam 1 MG TAB PO SCH ×2 (08:59→20:12)
[2018-01-06] MEDS: Cefdinir 300 MG CAP PO SCH ×2 (08:59→20:12)
[2018-01-06] MEDS: Senokot S 8.6-50 MG TAB PO SCH ×2 (08:59→20:12)
[2018-01-06] MEDS: MEMANTINE HCL PO SCH (09:00)
[2018-01-06] MEDS: DONEPEZIL HCL PO SCH (09:00)
[2018-01-06] MEDS: Digoxin 0.25 MG TAB PO SCH (09:01)
[2018-01-06] MEDS: Carvedilol 25 MG TAB PO SCH ×2 (09:01→20:12)
[2018-01-06] MEDS: Teriparatide [Forteo] 20 MCG SC SCH (09:04)
[2018-01-06] MEDS: Latanoprost 0.005% Ophth Soln 2.5 ml Bottle EA EYE SCH (11:27)
[2018-01-06] MEDS: Famotidine 20 MG TAB PO SCH ×2 (11:27→20:12)
[2018-01-06] MEDS: Insulin Regular 300 UNITS/3 ML VIAL SC PRN (13:43)
--- NOTE | 2018-01-06 17:10 | PRG ---
DATE OF SERVICE: 01/06/2018 SUBJECTIVE: The patient is currently hospital day #11, status post ground level fall, in which he had delayed presentation of retained hemothorax, which underwent a VATS procedure and he tolerated it well. This morning, he was evaluated by Cardiovascular Surgery, who discontinued his chest tubes this morning due to low output and appropriate appearing x-ray, otherwise the patient is tolerating a diet. His pain is controlled and he is working with Physical and Occupational Therapy. The patient currently is awaiting placement decision now that his chest tubes are out. OBJECTIVE: VITAL SIGNS: Temperature is 97.7, heart rate is 60, blood pressure 129/73, respirations 16, oxygen saturation 95% on room air. GENERAL: The patient is awake and alert. Follows verbal stimuli, is responsive and appropriate. The patient just returned from ambulating with Physical Therapy. HEENT: Unremarkable. LUNGS: Clear to auscultation with good inspiratory and expiratory effort. The patient has surprisingly good inspiration considering his chest tubes, which were just removed. ABDOMEN: Soft, flat, and nontender with active bowel sounds. EXTREMITIES: Neurovascularly intact x4. LABORATORY FINDINGS: White blood cell count 8.8, hemoglobin 11.8, hematocrit 37.2, platelets 488. RADIOGRAPHS: AP chest shows overall stable to slightly improved appearance of the right chest. ASSESSMENT AND PLAN: 1. Status post fall with delayed presentation of retained right hemothorax. 2. Postop day #7, status post video-assisted thoracoscopic surgery. 3. Pneumonia. 4. Continue antibiotics. Chest tube management per Cardiovascular Surgery. Repeat chest x-ray in the morning. Continue other supportive care to include physical and occupational therapy and await final placement. Per Case Management, the patient will likely be here till Tuesday due to his [employer] insurance. The evaluation and examination, laboratory and radiographic findings will be discussed with Dr. Mixon after this dictation. Job ID: [id number]
[2018-01-06] MEDS: Melatonin 3 MG TAB PO PRN (20:11)
[2018-01-06] MEDS: Dabigatran 150 mg Capsule PO SCH (20:11)
[2018-01-06] MEDS: Tamsulosin HCl 0.4 MG CAP PO SCH (20:12)
[2018-01-06] MEDS: Amitriptyline HCl 25 MG TAB PO SCH (20:12)
[2018-01-06] MEDS: Simvastatin 40 MG TAB PO SCH (20:12)
[2018-01-07] MEDS: Hydrocortisone Sod Succ/PF 100 mg/2 ml Vial IVP SCH ×4 (03:06→22:13)
[2018-01-07] MEDS: Acetaminophen 500 MG TAB PO SCH ×4 (03:22→22:17)
[2018-01-07] MEDS: Levothyroxine Sodium 112 MCG TAB PO SCH (06:47)
[2018-01-07] MEDS: Levothyroxine Sodium 25 MCG TAB PO SCH (06:47)
--- NOTE | 2018-01-07 07:56 | RAD ---
CHEST 1 VIEW: Date: 01/07/18 INDICATION: Status post thoracotomy. IMPRESSION: Right-sided thoracostomy tube has been removed from prior dated 01/06/18. There is mild right basilar atelectasis and persistent small right pleural effusion. No definite pneumothorax is evident. The re mainder of the examination is unchanged. POS: [facility]
[2018-01-07] MEDS: Polyethylene Glycol 3350 17 GM Packet PO SCH (08:13)
[2018-01-07] MEDS: Multivitamin W/ Minerals 1 TAB PO SCH (08:59)
[2018-01-07] MEDS: Fish Oil 1,000 MG CAP PO SCH (08:59)
[2018-01-07] MEDS: Cefdinir 300 MG CAP PO SCH ×2 (08:59→20:25)
[2018-01-07] MEDS: Dabigatran 150 mg Capsule PO SCH ×2 (08:59→20:25)
[2018-01-07] MEDS: Famotidine 20 MG TAB PO SCH ×2 (08:59→20:24)
[2018-01-07] MEDS: Sacubitril 24.5 MG/Valsartan 25.5 MG TABLET PO SCH ×3 (09:01→20:31)
[2018-01-07] MEDS: Lorazepam 1 MG TAB PO SCH ×2 (09:01→20:24)
[2018-01-07] MEDS: Teriparatide [Forteo] 20 MCG SC SCH (09:08)
[2018-01-07] MEDS: MEMANTINE HCL PO SCH (09:09)
[2018-01-07] MEDS: DONEPEZIL HCL PO SCH (09:09)
[2018-01-07] MEDS: Latanoprost 0.005% Ophth Soln 2.5 ml Bottle EA EYE SCH (09:10)
[2018-01-07] MEDS: Carvedilol 25 MG TAB PO SCH ×2 (09:11→20:24)
[2018-01-07] MEDS: Senokot S 8.6-50 MG TAB PO SCH ×2 (09:11→20:27)
[2018-01-07] MEDS: Digoxin 0.25 MG TAB PO SCH (09:22)
--- NOTE | 2018-01-07 14:20 | PRG ---
DATE OF SERVICE: 01/07/2018 SUBJECTIVE: The patient remains on the surgical floor. He is status post VATS procedure for retained hemothorax. The patient did well overnight. There have been no issues. He is continuing to progress with physical and occupational therapy. He is tolerating diet. His pain is controlled. He had his chest tubes disconnected yesterday and has done well since. The patient has also been restarted on his Pradaxa. OBJECTIVE: VITAL SIGNS: Temperature is 98.3, heart rate is 60, blood pressure is 96/64, respirations 18, oxygen saturation is 97% on room air. GENERAL: The patient is resting comfortably in bed. He has again just returned from working with physical and occupational therapy. He is alert, oriented, and appropriate. LUNGS: Clear to auscultation with good inspiratory and expiratory effort. He does have slight bit of rhonchi on his right, but otherwise, primarily clear. HEART: Regular rate and rhythm. ABDOMEN: Soft, flat, and nontender with active bowel sounds. EXTREMITIES: Neurovascularly intact. Postop dressing is clean, dry, and intact. LABORATORY FINDINGS: There are none for today. RADIOGRAPHIC FINDINGS: Chest x-ray shows the right-sided thoracostomy tubes have been removed with a small right pleural effusion and right basilar atelectasis. ASSESSMENT: 1. Status post fall with delayed presentation of retained right hemothorax. 2. Postop day #8, status post video-assisted thoracoscopic surgery. 3. Pneumonia, resolved. PLAN: Plan will be to continue supportive care and await placement decision. Job ID: [id number]
[2018-01-07] MEDS: Amitriptyline HCl 25 MG TAB PO SCH (20:24)
[2018-01-07] MEDS: Simvastatin 40 MG TAB PO SCH (20:24)
[2018-01-07] MEDS: Tamsulosin HCl 0.4 MG CAP PO SCH (20:24)
[2018-01-07] MEDS: Melatonin 3 MG TAB PO PRN (22:18)
[2018-01-08] MEDS: Hydrocortisone Sod Succ/PF 100 mg/2 ml Vial IVP SCH ×4 (02:54→20:05)
[2018-01-08] MEDS: Acetaminophen 500 MG TAB PO SCH ×4 (04:57→22:23)
[2018-01-08] MEDS: Levothyroxine Sodium 25 MCG TAB PO SCH (04:58)
[2018-01-08] MEDS: Levothyroxine Sodium 112 MCG TAB PO SCH (04:58)
[2018-01-08] MEDS: Digoxin 0.25 MG TAB PO SCH (08:39)
[2018-01-08] MEDS: Multivitamin W/ Minerals 1 TAB PO SCH (08:40)
[2018-01-08] MEDS: Fish Oil 1,000 MG CAP PO SCH (08:40)
[2018-01-08] MEDS: Sacubitril 24.5 MG/Valsartan 25.5 MG TABLET PO SCH ×2 (08:40→20:03)
[2018-01-08] MEDS: Dabigatran 150 mg Capsule PO SCH ×2 (08:40→20:03)
[2018-01-08] MEDS: Lorazepam 1 MG TAB PO SCH ×2 (08:40→20:03)
[2018-01-08] MEDS: Carvedilol 25 MG TAB PO SCH ×2 (08:40→20:03)
[2018-01-08] MEDS: Famotidine 20 MG TAB PO SCH ×2 (08:40→20:03)
[2018-01-08] MEDS: Cefdinir 300 MG CAP PO SCH ×2 (08:40→20:03)
[2018-01-08] MEDS: MEMANTINE HCL PO SCH (08:41)
[2018-01-08] MEDS: Latanoprost 0.005% Ophth Soln 2.5 ml Bottle EA EYE SCH (08:41)
[2018-01-08] MEDS: DONEPEZIL HCL PO SCH (08:41)
[2018-01-08] MEDS: Senokot S 8.6-50 MG TAB PO SCH ×2 (08:42→20:04)
[2018-01-08] MEDS: Teriparatide [Forteo] 20 MCG SC SCH (08:42)
[2018-01-08] MEDS: Polyethylene Glycol 3350 17 GM Packet PO SCH (08:42)
--- NOTE | 2018-01-08 09:03 | RAD ---
CHEST ONE VIEW: INDICATIONS: History of thoracotomy. COMPARISON: 01/07/2018 FINDINGS/IMPRESSION: The examination is unchanged. Cardiomegaly persists. No pneumothorax is evident. Small right pleura l effusion and mild right basilar atelectasis persists. Cardiomegaly is stable. POS: [facility]
[2018-01-08] MEDS: Insulin Regular 300 UNITS/3 ML VIAL SC PRN (15:52)
[2018-01-08] MEDS: Tamsulosin HCl 0.4 MG CAP PO SCH (20:03)
[2018-01-08] MEDS: Melatonin 3 MG TAB PO PRN (20:03)
[2018-01-08] MEDS: Amitriptyline HCl 25 MG TAB PO SCH (20:03)
[2018-01-08] MEDS: Simvastatin 40 MG TAB PO SCH (20:04)
[2018-01-09] MEDS: Hydrocortisone Sod Succ/PF 100 mg/2 ml Vial IVP SCH ×2 (02:56→08:24)
[2018-01-09] MEDS: Levothyroxine Sodium 25 MCG TAB PO SCH (05:13)
[2018-01-09] MEDS: Acetaminophen 500 MG TAB PO SCH ×2 (05:13→10:02)
[2018-01-09] MEDS: Levothyroxine Sodium 112 MCG TAB PO SCH (05:13)
--- NOTE | 2018-01-09 07:50 | PRG ---
DATE OF SERVICE: 01/08/2018 SUBJECTIVE: The patient is hospital day 14 after admission to the surgical floor for delayed presentation of retained hemothorax. The patient has undergone a VATS procedure, which he tolerated. His chest tubes have been removed and he has been progressing with physical and occupation therapy. His does note that last night he had a little bit of an issue with owning, but this morning was better again and she expects this is not unusual course for him especially when he has been in the hospital. The patient is tolerating a diet. His pain is controlled. OBJECTIVE: VITAL SIGNS: Temperature is 97.8, heart rate 53, blood pressure 119/77, respirations 18, oxygen saturation is 97% on room air. GENERAL: The patient is currently sleeping in bed. The states that he has just fallen asleep and for my exam and from reports from the nursing and the , there is no need to wake him at this time. HEENT: Unremarkable. LUNGS: Clear to auscultation. HEART: Regular rate and rhythm. ABDOMEN: Soft and flat with active bowel sounds. EXTREMITIES: Capillary refill is less than 3 seconds. Pulses are 2+. LABORATORY FINDINGS: There are no labs to report this morning. Radiograph examination is unchanged. ASSESSMENT AND PLAN: 1. Status post delayed presentation of retained hemothorax. 2. Postop day 9 status post video-assisted thoracoscopic surgery procedure. PLAN: Plan will be continue supportive care and await placement decision. Job ID: [id number]
[2018-01-09 08:20] VITALS: TEMP 97.4
[2018-01-09] MEDS: Digoxin 0.25 MG TAB PO SCH (08:22)
[2018-01-09] MEDS: Sacubitril 24.5 MG/Valsartan 25.5 MG TABLET PO SCH (08:22)
[2018-01-09] MEDS: Fish Oil 1,000 MG CAP PO SCH (08:22)
[2018-01-09] MEDS: Multivitamin W/ Minerals 1 TAB PO SCH (08:23)
[2018-01-09] MEDS: Cefdinir 300 MG CAP PO SCH (08:23)
[2018-01-09] MEDS: Famotidine 20 MG TAB PO SCH (08:23)
[2018-01-09] MEDS: Latanoprost 0.005% Ophth Soln 2.5 ml Bottle EA EYE SCH (08:23)
[2018-01-09] MEDS: Dabigatran 150 mg Capsule PO SCH (08:23)
[2018-01-09] MEDS: MEMANTINE HCL PO SCH (08:24)
[2018-01-09] MEDS: Teriparatide [Forteo] 20 MCG SC SCH (08:24)
[2018-01-09] MEDS: DONEPEZIL HCL PO SCH (08:24)
[2018-01-09] MEDS: Carvedilol 25 MG TAB PO SCH (08:24)
[2018-01-09] MEDS: Polyethylene Glycol 3350 17 GM Packet PO SCH (08:25)
[2018-01-09] MEDS: Senokot S 8.6-50 MG TAB PO SCH (08:25)
--- NOTE | 2018-01-09 11:11 | PRG ---
DATE OF SERVICE: 01/09/2018 SUBJECTIVE: Mr. Rojo is doing well. OBJECTIVE: He is afebrile. Vital signs are stable. Bilateral clear breath sounds. Wounds are all healing well. ASSESSMENT: Status post right-sided hemothorax with status post VATS. PLAN: Plan to go to half-way today. Stable for discharge. Job ID: [id number]
[2018-01-09] MEDS: Insulin Regular 300 UNITS/3 ML VIAL SC PRN (12:17)
[2018-01-09 12:37] VITALS: BP 99/58
--- NOTE | 2018-01-10 13:52 | PQF ---
LASHAY BOUDREAUX III, RICHARD D MD [id number] SURG [id number] CLINICAL DOCUMENTATION CLARIFICATION FORM: POST DISCHARGE DATE: 01/10/2018 ATTN: Dr. Man Please exercise your independent, professional judgment in responding to the clarification form. Clinical indicators are provided on the bottom of this form for your review Please clarify if patient's right hemithorax was due to: Please check appropriate box(s): [ ] Due to previous right sided multiple rib fracture from fall [ ] Due to Pradaxa [ ] Other diagnosis (please specify) [ ] Unable to determine In addition, please specify: Present on Admission (POA): [ ] Yes [ ] No [ ] Unable to determine For continuity of documentation, please document condition throughout progress notes and discharge summary. Thank You. CLINICAL INDICATORS - SIGNS / SYMPTOMS / LABS Per H&P: Patient admitted 12/12/17 due to fall with multiple rib fractures 8-10 on the right. Transferred to rehab where his Pradaxa was restarted. Became short of breath. Chest x-ray in ER revealed possible pneumonia. Transferred to [facility] where CT scan of chest showed right hemothorax. Per consult note: Pradaxa was stopped again. His chest x-ray shows incomplete clearance of large effusion tis hospitalization that is new compared to an x- ray 2-[address] scan shows loculation within the chest. His CT scan from 2-3 weeks ago, he had no effusion of pneumothorax. Retained loculated hemothorax. RISK FACTORS Status post multiple right sided rib fractures. Restarting of Pradaxa. TREATMENTS: Right thorascopic evacuation of hemothorax and multiple rib blocks on 12/30. Right tube thoracostomy on 12/28. (This form is maintained as a part of the permanent medical record) 2014 [employer]. All Rights Reserved Alina [email or web address] [phone] MTDD
== END 2018-01-09 12:47 | DRG 199 ==
LOC: ERS 19:32 → SURG A 22:40 → CCU 12-30 15:26 → SURG A 12-31 10:35
PROVIDERS: ADMIT Specialist; ATTEND Specialist
PROC: 0W9900Z Drainage of Right Pleural Cavity with Drainage Device, Open Approach (ICD-10-PCS; 2017-12-28)
PROC: 30233N1 Transfusion of Nonautologous Red Blood Cells into Peripheral Vein, Percutaneous Approach (ICD-10-PCS; 2017-12-28)
PROC: 0WC94ZZ Extirpation of Matter from Right Pleural Cavity, Percutaneous Endoscopic Approach (ICD-10-PCS; principal; 2017-12-30)
DX: S27.1XXA Traumatic hemothorax, initial encounter (principal); J18.9 Pneumonia, unspecified organism; N17.0 Acute kidney failure with tubular necrosis; S22.41XA Multiple fractures of ribs, right side, initial encounter for closed fracture; I42.9 Cardiomyopathy, unspecified; C91.10 Chronic lymphocytic leukemia of B-cell type not having achieved remission; D62 Acute posthemorrhagic anemia; F05 Delirium due to known physiological condition; I48.2 Chronic atrial fibrillation; G30.1 Alzheimer's disease with late onset; F02.80 Dementia in other diseases classified elsewhere, unspecified severity, without behavioral disturbance, psychotic disturbance, mood disturbance, and anxiety; I25.2 Old myocardial infarction; Z88.5 Allergy status to narcotic agent; Z79.82 Long term (current) use of aspirin; Z79.01 Long term (current) use of anticoagulants; Z79.899 Other long term (current) drug therapy; Z95.1 Presence of aortocoronary bypass graft; Z96.641 Presence of right artificial hip joint; Z96.653 Presence of artificial knee joint, bilateral; Z95.810 Presence of automatic (implantable) cardiac defibrillator; W18.30XA Fall on same level, unspecified, initial encounter
CPT/HCPCS: 36415; 36416; 36430; 71045; 71250; 80048; 80053; 82533; 82805; 83735; 84100; 85025; 86850; 86900; 86901; 94640; 96374; G8978-GP-CK; G8978-GP-CL; G8979-GP-CI; G8979-GP-CJ; G8987-GO-CL; G8988-GO-CJ; G8996-GN-CJ; G8997-GN-CJ; J0670; J1200; J1642; J1720; J1815; J1885; J1940; J2001; J2060; J2250; J2370; J2704; J3010; J7070; J7620; P9016

== ENCOUNTER 2018-01-23 10:23 | Day surgery (SDC) | payer MEDICARE ==
[2018-01-23] MEDS ORDERED: Sodium Chloride 0.9% 30 ML ONE (10:44)
[2018-01-23] MEDS ORDERED: Acetaminophen 500 MG TAB PO PRN (10:46)
[2018-01-23] MEDS ORDERED: Privigen 10 GM, Privigen 20 GM in Admixture Fee 1 EACH IVPB SCH (11:00)
[2018-01-23] MEDS ORDERED: OCTAGAM 10% 10 GM, OCTAGAM 10% 20 GM in Admixture Fee 1 EACH IVPB SCH (11:00)
[2018-01-23 12:14] VITALS: BP 116/58; TEMP 97.6
== END 2018-01-23 16:31 | disposition home or self-care (01) ==
LOC: ONC/OP 10:23
PROVIDERS: ATTEND Internal Medicine Hematology & Oncology
DX: C91.10 Chronic lymphocytic leukemia of B-cell type not having achieved remission (principal); D80.1 Nonfamilial hypogammaglobulinemia; Z88.5 Allergy status to narcotic agent; Z79.01 Long term (current) use of anticoagulants; Z79.82 Long term (current) use of aspirin; Z79.4 Long term (current) use of insulin; Z79.899 Other long term (current) drug therapy
CPT/HCPCS: 36415; 80053; 96365; 96366; J1459; J1568

== ENCOUNTER 2018-02-09 15:12 | Outpatient (CLI) | payer MEDICARE ==
--- NOTE | 2018-02-09 17:06 | RAD ---
PA AND LATERAL CHEST X-RAY: 02/09/18 HISTORY: Hemothorax. COMPARISON: 01/08/18. FINDINGS: Left subclavian Mediport catheter as well as triple lead right subclavian AICD device remains in plac e and unchanged in position. Postsurgical changes related to median sternotomy are again seen. The ca rdiac silhouette and pulmonary vasculature are within normal limits. Pleural and parenchymal changes are again seen at the right lung base likely related to right pleural effusion and atelectasis. This may be slightly increased from the prior exam. Lungs are otherwise clear. Vascular calcifications in the thoracic aorta. No other interval change. IMPRESSION: Right pleural effusion and associated atelectasis. This may be slightly increased from the prior stud y. POS: [facility]
== END 2018-02-09 15:13 | disposition home or self-care (01) ==
LOC: RAD 15:12
PROVIDERS: ATTEND Thoracic Surgery (Cardiothoracic Vascular Surgery)
DX: J94.2 Hemothorax (principal); J90 Pleural effusion, not elsewhere classified; J98.11 Atelectasis
CPT/HCPCS: 71046

== ENCOUNTER 2018-02-21 10:07 | Day surgery (SDC) | payer MEDICARE ==
[2018-02-21] MEDS ORDERED: PRIVIGEN IVPB SCH (10:45)
[2018-02-21] MEDS ORDERED: Acetaminophen 500 MG TAB PO SCH (10:45)
[2018-02-21] MEDS ORDERED: diphenhydrAMINE 25 MG CAP PO SCH (10:45)
[2018-02-21] MEDS ORDERED: OCTAGAM 10% 40 GM in Premix Bag 1 BAG IVPB SCH (11:00)
[2018-02-21] MEDS ORDERED: Sodium Chloride 0.9% 20 ML ONE (11:18)
[2018-02-21] MEDS ORDERED: Sodium Chloride 0.9% 30 ML ONE (11:24)
[2018-02-21 12:49] VITALS: BP 157/66; TEMP 97.7
== END 2018-02-21 13:29 | disposition home or self-care (01) ==
LOC: ONC/OP 10:07
PROVIDERS: ATTEND Internal Medicine Hematology & Oncology
DX: C91.10 Chronic lymphocytic leukemia of B-cell type not having achieved remission (principal); D80.1 Nonfamilial hypogammaglobulinemia; F03.90 Unspecified dementia, unspecified severity, without behavioral disturbance, psychotic disturbance, mood disturbance, and anxiety; I25.2 Old myocardial infarction; E07.9 Disorder of thyroid, unspecified; E78.00 Pure hypercholesterolemia, unspecified; I10 Essential (primary) hypertension; E89.0 Postprocedural hypothyroidism; Z87.891 Personal history of nicotine dependence; Z86.73 Personal history of transient ischemic attack (TIA), and cerebral infarction without residual deficits; Z79.899 Other long term (current) drug therapy; Z95.0 Presence of cardiac pacemaker; Z95.1 Presence of aortocoronary bypass graft
CPT/HCPCS: 36415; 82728; 96365; 96366; J1459; J1568; J1642

== ENCOUNTER 2018-03-21 09:53 | Day surgery (SDC) | payer MEDICARE ==
[~2018-03-21 09:53] MED LIST changes: +Acetaminophen 500 MG TAB PO SCH; -ISOVUE-370 76%-LOCM 1 ML ONE; +OCTAGAM 10% 10 GM, OCTAGAM 10% 20 GM in Admixture Fee 1 EACH IVPB SCH; +Sodium Chloride 0.9% 20 ML ONE; +diphenhydrAMINE 25 MG CAP PO SCH
[2018-03-21] MEDS ORDERED: Sodium Chloride 0.9% 30 ML ONE (11:04)
[2018-03-21 12:28] VITALS: BP 129/72; TEMP 97.6
== END 2018-03-21 12:28 | disposition home or self-care (01) ==
LOC: ONC/OP 09:53
PROVIDERS: ATTEND Internal Medicine Hematology & Oncology
DX: C91.10 Chronic lymphocytic leukemia of B-cell type not having achieved remission (principal); D80.1 Nonfamilial hypogammaglobulinemia; Z88.5 Allergy status to narcotic agent
CPT/HCPCS: 96365; 96366; J1568; J1642; Q0163

== ENCOUNTER → 2018-04-18 | Day surgery (SDC) | payer MEDICARE ==
[2018-04-18 12:57] VITALS: TEMP 97.6
[2018-04-18 12:59] VITALS: BP 125/61
== END ==
LOC: ONC/OP 09:33
PROVIDERS: ATTEND Internal Medicine Hematology & Oncology
DX: Z51.12 Encounter for antineoplastic immunotherapy (principal); C91.10 Chronic lymphocytic leukemia of B-cell type not having achieved remission; D80.1 Nonfamilial hypogammaglobulinemia; Z88.5 Allergy status to narcotic agent; Z79.1 Long term (current) use of non-steroidal anti-inflammatories (NSAID); Z79.82 Long term (current) use of aspirin; Z79.01 Long term (current) use of anticoagulants; Z79.4 Long term (current) use of insulin; Z79.899 Other long term (current) drug therapy
CPT/HCPCS: 96365; 96366; J1568; J1642; Q0163